=== PATIENT | male | born 1990 | race Caucasian/White ===

== ENCOUNTER → 2017-01-12 | Outpatient (CLI) | payer OTHER, BC ==
[2017-01-12 17:29] LABS: ABSOLUTE EOSINOPHILS # (AUTO) 0.1 10^3/uL (0.0-0.6); ABSOLUTE LYMPHOCYTES (AUTO) 2.2 10^3/uL (0.5-4.7); ABSOLUTE MONOCYTES (AUTO) 0.5 10^3/uL (0.1-1.4); ABSOLUTE NEUT (AUTO) 3.9 10^3/uL (1.7-8.2); BASOPHILS % (AUTO) 0.2 % (0-2); EOSINOPHILS % (AUTO) 0.9 % (0-6); HEMATOCRIT 41.6 % (37.9-51.0); HEMOGLOBIN 14.8 g/dL (13.5-17.0); HGB HCT DIFFERENCE 2.8; LYMPHOCYTES % (AUTO) 32.8 % (13-45); MEAN CORPUSCULAR HEMOGLOBIN 29.6 pg (27.0-33.4); MEAN CORPUSCULAR HGB CONC 35.5 g/dL (32.0-36.0); MEAN CORPUSCULAR VOLUME 83 fl (80-97); MONOCYTES % (AUTO) 8.1 % (3-13); RED BLOOD COUNT 4.99 10^6/uL (4.35-5.55); RED CELL DISTRIBUTION WIDTH 12.7 % (11.5-14.0); WHITE BLOOD COUNT 6.6 10^3/uL (4.0-10.5)
[2017-01-12 17:38] LABS: APPEARANCE,URINE CLEAR; BILIRUBIN,URINE NEGATIVE (NEGATIVE); GLUCOSE, URINE NEGATIVE (NEGATIVE); KETONES,URINE NEGATIVE (NEGATIVE); LEUKOCYTE ESTERASE,URINE NEGATIVE (NEGATIVE); NITRITE,URINE NEGATIVE (NEGATIVE); PROTEIN,URINE 100 mg/dL (NEGATIVE); UROBILINOGEN,URINE NEGATIVE mg/dL (<2.0)
[2017-01-12 17:52] LABS: ALANINE AMINOTRANSFERASE 22 U/L (21-72); ALBUMIN 4.5 g/dL (3.5-5.0); ALKALINE PHOSPHATASE 45 U/L (38-126); ANION GAP 12 (5-19); ASPARTATE AMINO TRANSFERASE 20 U/L (17-59); BILIRUBIN,TOTAL 0.8 mg/dL (0.2-1.3); BLOOD UREA NITROGEN 39 mg/dL (7-20); CARBON DIOXIDE 25 mmol/L (22-30); CHLORIDE 105 mmol/L (98-107); CREATININE RESULT 1.72 mg/dL (0.52-1.25); GLUCOSE 61 mg/dL (75-110); POTASSIUM 4.9 mmol/L (3.6-5.0); SODIUM 141.7 mmol/L (137-145); TOTAL PROTEIN 7.4 g/dL (6.3-8.2)
== END ==
LOC: OD 16:00
PROVIDERS: ATTEND Internal Medicine Nephrology
DX: Z48.22 Encounter for aftercare following kidney transplant (principal); Z79.899 Other long term (current) drug therapy
CPT/HCPCS: 36415; 80053; 80197; 81001; 85025

== ENCOUNTER → 2017-02-25 | Outpatient (CLI) | payer OTHER, BC ==
[2017-02-25 17:26] LABS: APPEARANCE,URINE CLEAR; BILIRUBIN,URINE NEGATIVE (NEGATIVE); GLUCOSE, URINE NEGATIVE (NEGATIVE); KETONES,URINE NEGATIVE (NEGATIVE); LEUKOCYTE ESTERASE,URINE NEGATIVE (NEGATIVE); NITRITE,URINE NEGATIVE (NEGATIVE); PROTEIN,URINE 100 mg/dL (NEGATIVE); URINE SPECIFIC GRAVITY 1.012; UROBILINOGEN,URINE NEGATIVE mg/dL (<2.0)
[2017-02-25 17:54] LABS: ANION GAP 15 (5-19); BLOOD UREA NITROGEN 54 mg/dL (7-20); CALCIUM 9.5 mg/dL (8.4-10.2); CARBON DIOXIDE 20 mmol/L (22-30); CHLORIDE 105 mmol/L (98-107); CREATININE RESULT 1.66 mg/dL (0.52-1.25); GLUCOSE 84 mg/dL (75-110); SODIUM 139.6 mmol/L (137-145)
[2017-02-27 11:38] LABS: CREATININE URINE 81.7 mg/dL (Not Estab.)
== END ==
LOC: OD 16:17
PROVIDERS: ATTEND Internal Medicine Nephrology
DX: N18.3 Chronic kidney disease, stage 3 (moderate) (principal); R80.9 Proteinuria, unspecified; Z48.22 Encounter for aftercare following kidney transplant
CPT/HCPCS: 36415; 80048; 81001; 82570; 84156

== ENCOUNTER → 2017-06-07 | Outpatient (CLI) | payer BC ==
[2017-06-07 17:02] LABS: HEMATOCRIT 39.4 % (37.9-51.0); HEMOGLOBIN 13.6 g/dL (13.5-17.0); HGB HCT DIFFERENCE 1.4; MEAN CORPUSCULAR HEMOGLOBIN 29.2 pg (27.0-33.4); MEAN CORPUSCULAR HGB CONC 34.5 g/dL (32.0-36.0); MEAN CORPUSCULAR VOLUME 85 fl (80-97); RED BLOOD COUNT 4.65 10^6/uL (4.35-5.55); WHITE BLOOD COUNT 5.6 10^3/uL (4.0-10.5)
[2017-06-07 17:15] LABS: APPEARANCE,URINE CLEAR; BILIRUBIN,URINE NEGATIVE (NEGATIVE); GLUCOSE, URINE NEGATIVE (NEGATIVE); KETONES,URINE NEGATIVE (NEGATIVE); LEUKOCYTE ESTERASE,URINE NEGATIVE (NEGATIVE); NITRITE,URINE NEGATIVE (NEGATIVE); PROTEIN,URINE 100 mg/dL (NEGATIVE); URINE SPECIFIC GRAVITY 1.009; UROBILINOGEN,URINE NEGATIVE mg/dL (<2.0)
[2017-06-07 17:33] LABS: ALANINE AMINOTRANSFERASE 20 U/L (21-72); ALBUMIN 4.5 g/dL (3.5-5.0); ALKALINE PHOSPHATASE 48 U/L (38-126); ANION GAP 12 (5-19); ASPARTATE AMINO TRANSFERASE 16 U/L (17-59); BILIRUBIN,DIRECT 0.3 mg/dL (0.0-0.4); BILIRUBIN,TOTAL 0.8 mg/dL (0.2-1.3); BLOOD UREA NITROGEN 29 mg/dL (7-20); CALCIUM 9.4 mg/dL (8.4-10.2); CARBON DIOXIDE 24 mmol/L (22-30); CHLORIDE 104 mmol/L (98-107); CREATININE RESULT 1.84 mg/dL (0.52-1.25); GLUCOSE 119 mg/dL (75-110); POTASSIUM 4.4 mmol/L (3.6-5.0); SODIUM 139.6 mmol/L (137-145); TOTAL PROTEIN 7.2 g/dL (6.3-8.2)
[2017-06-07 17:39] LABS: URINE CREATININE 113.5 mg/dL (24-392); URINE PROTEIN 113.8 mg/dL (<12)
[2017-06-07 18:11] LABS: ADD HIVPANEL? NO; HIV (1 AND 2) ANTIBODY NEGATIVE (NEGATIVE)
[2017-06-09 08:41] LABS: HEPATITIS C VIRUS AB <0.1 s/co ratio (0.0-0.9)
[2017-06-09 13:39] LABS: JO-1 ANTIBODY (ANACOMP) <0.2 AI (0.0-0.9)
== END ==
LOC: OD 15:48
PROVIDERS: ATTEND Internal Medicine Nephrology
DX: N18.3 Chronic kidney disease, stage 3 (moderate) (principal); R80.9 Proteinuria, unspecified; Z48.22 Encounter for aftercare following kidney transplant
CPT/HCPCS: 36415; 80053; 80197; 81001; 82570; 84156; 85027; 86038; 86225; 86235; 86701; 86803; 86804; 87340

== ENCOUNTER → 2017-06-16 | Outpatient (CLI) | payer BC | LOC: OD 07:18 | PROVIDERS: ATTEND Internal Medicine Nephrology | DX: N18.3 Chronic kidney disease, stage 3 (moderate) (principal); R80.9 Proteinuria, unspecified; Z48.22 Encounter for aftercare following kidney transplant; I95.9 Hypotension, unspecified | CPT/HCPCS: 36415; 82533 ==

== ENCOUNTER → 2017-09-06 | Outpatient (CLI) | payer BC ==
[2017-09-06 14:46] LABS: APPEARANCE,URINE CLEAR; BILIRUBIN,URINE NEGATIVE (NEGATIVE); GLUCOSE, URINE NEGATIVE (NEGATIVE); KETONES,URINE NEGATIVE (NEGATIVE); LEUKOCYTE ESTERASE,URINE NEGATIVE (NEGATIVE); NITRITE,URINE NEGATIVE (NEGATIVE); PROTEIN,URINE 100 mg/dL (NEGATIVE); URINE SPECIFIC GRAVITY 1.006; UROBILINOGEN,URINE NEGATIVE mg/dL (<2.0)
[2017-09-06 14:58] LABS: ABSOLUTE EOSINOPHILS # (AUTO) 0.1 10^3/uL (0.0-0.6); ABSOLUTE LYMPHOCYTES (AUTO) 1.8 10^3/uL (0.5-4.7); ABSOLUTE MONOCYTES (AUTO) 0.5 10^3/uL (0.1-1.4); ABSOLUTE NEUT (AUTO) 3.1 10^3/uL (1.7-8.2); BASOPHILS % (AUTO) 0.5 % (0-2); EOSINOPHILS % (AUTO) 1.5 % (0-6); HEMATOCRIT 37.8 % (37.9-51.0); HEMOGLOBIN 13.4 g/dL (13.5-17.0); HGB HCT DIFFERENCE 2.4; LYMPHOCYTES % (AUTO) 32.8 % (13-45); MEAN CORPUSCULAR HGB CONC 35.5 g/dL (32.0-36.0); MEAN CORPUSCULAR VOLUME 84 fl (80-97); MONOCYTES % (AUTO) 8.3 % (3-13); RED BLOOD COUNT 4.48 10^6/uL (4.35-5.55); RED CELL DISTRIBUTION WIDTH 13.2 % (11.5-14.0); SEGMENTED NEUTROPHILS % (AUTO) 56.9 % (42-78); WHITE BLOOD COUNT 5.4 10^3/uL (4.0-10.5)
[2017-09-06 15:15] LABS: ALANINE AMINOTRANSFERASE 18 U/L (21-72); ALBUMIN 4.2 g/dL (3.5-5.0); ALKALINE PHOSPHATASE 41 U/L (38-126); ANION GAP 11 (5-19); ASPARTATE AMINO TRANSFERASE 15 U/L (17-59); BILIRUBIN,DIRECT 0.3 mg/dL (0.0-0.4); BILIRUBIN,TOTAL 0.7 mg/dL (0.2-1.3); BLOOD UREA NITROGEN 32 mg/dL (7-20); CALCIUM 8.9 mg/dL (8.4-10.2); CARBON DIOXIDE 26 mmol/L (22-30); CHLORIDE 105 mmol/L (98-107); CREATININE RESULT 1.77 mg/dL (0.52-1.25); GLUCOSE 97 mg/dL (75-110); POTASSIUM 4.9 mmol/L (3.6-5.0); SODIUM 141.8 mmol/L (137-145); TOTAL PROTEIN 6.4 g/dL (6.3-8.2)
[2017-09-06 15:16] LABS: URINE PROTEIN 79.2 mg/dL (<12)
== END ==
LOC: OD 14:10
PROVIDERS: ATTEND Internal Medicine Nephrology
DX: N18.3 Chronic kidney disease, stage 3 (moderate) (principal); Z48.22 Encounter for aftercare following kidney transplant; R80.9 Proteinuria, unspecified
CPT/HCPCS: 36415; 80053; 80197; 81001; 82570; 84156; 85025

== ENCOUNTER → 2018-01-10 | Outpatient (CLI) | payer BC ==
[2018-01-10 12:52] LABS: ABSOLUTE EOSINOPHILS # (AUTO) 0.1 10^3/uL (0.0-0.6); ABSOLUTE LYMPHOCYTES (AUTO) 1.8 10^3/uL (0.5-4.7); ABSOLUTE MONOCYTES (AUTO) 0.4 10^3/uL (0.1-1.4); ABSOLUTE NEUT (AUTO) 2.6 10^3/uL (1.7-8.2); BASOPHILS % (AUTO) 0.4 % (0-2); EOSINOPHILS % (AUTO) 1.5 % (0-6); HEMATOCRIT 39.8 % (37.9-51.0); HEMOGLOBIN 13.9 g/dL (13.5-17.0); LYMPHOCYTES % (AUTO) 36.4 % (13-45); MEAN CORPUSCULAR HEMOGLOBIN 29.5 pg (27.0-33.4); MEAN CORPUSCULAR VOLUME 84 fl (80-97); PLATELET COUNT 150 10^3/uL (150-450); RED BLOOD COUNT 4.72 10^6/uL (4.35-5.55); RED CELL DISTRIBUTION WIDTH 12.8 % (11.5-14.0); SEGMENTED NEUTROPHILS % (AUTO) 52.7 % (42-78); TOTAL CELLS COUNTED % (AUTO) 100 %
[2018-01-10 12:55] LABS: APPEARANCE,URINE CLEAR; BILIRUBIN,URINE NEGATIVE (NEGATIVE); COLOR,URINE YELLOW; GLUCOSE, URINE NEGATIVE (NEGATIVE); KETONES,URINE NEGATIVE (NEGATIVE); LEUKOCYTE ESTERASE,URINE NEGATIVE (NEGATIVE); NITRITE,URINE NEGATIVE (NEGATIVE); PROTEIN,URINE 100 mg/dL (NEGATIVE); URINE SPECIFIC GRAVITY 1.013; UROBILINOGEN,URINE NEGATIVE mg/dL (<2.0)
[2018-01-10 13:13] LABS: ALANINE AMINOTRANSFERASE 20 U/L (21-72); ALBUMIN 4.2 g/dL (3.5-5.0); ALKALINE PHOSPHATASE 44 U/L (38-126); ANION GAP 9 (5-19); ASPARTATE AMINO TRANSFERASE 18 U/L (17-59); BILIRUBIN,DIRECT 0.4 mg/dL (0.0-0.4); BILIRUBIN,TOTAL 0.7 mg/dL (0.2-1.3); BLOOD UREA NITROGEN 45 mg/dL (7-20); CALCIUM 9.9 mg/dL (8.4-10.2); CARBON DIOXIDE 26 mmol/L (22-30); CHLORIDE 106 mmol/L (98-107); GLUCOSE 83 mg/dL (75-110); POTASSIUM 4.9 mmol/L (3.6-5.0); SODIUM 141.1 mmol/L (137-145); TOTAL PROTEIN 6.7 g/dL (6.3-8.2)
[2018-01-10 13:16] LABS: URINE CREATININE 107.2 mg/dL (24-392)
[2018-01-10 13:26] LABS: UR PRO/CREAT RATIO RESULT 2.7 mg/mg (0.0-0.2); URINE PROTEIN 291.4 mg/dL (<12)
== END ==
LOC: OD 11:24
PROVIDERS: ATTEND Internal Medicine Nephrology
DX: Z48.22 Encounter for aftercare following kidney transplant (principal); N18.3 Chronic kidney disease, stage 3 (moderate); R80.9 Proteinuria, unspecified
CPT/HCPCS: 36415; 80053; 80197; 81001; 82570; 84156; 85025

== ENCOUNTER → 2018-02-04 | Outpatient (CLI) | payer BC ==
[2018-02-04 11:45] LABS: ABSOLUTE EOSINOPHILS # (AUTO) 0.1 10^3/uL (0.0-0.6); ABSOLUTE LYMPHOCYTES (AUTO) 1.6 10^3/uL (0.5-4.7); ABSOLUTE MONOCYTES (AUTO) 0.4 10^3/uL (0.1-1.4); ABSOLUTE NEUT (AUTO) 2.8 10^3/uL (1.7-8.2); BASOPHILS % (AUTO) 0.5 % (0-2); EOSINOPHILS % (AUTO) 1.9 % (0-6); HEMATOCRIT 41.1 % (37.9-51.0); HEMOGLOBIN 14.3 g/dL (13.5-17.0); LYMPHOCYTES % (AUTO) 32.5 % (13-45); MEAN CORPUSCULAR HEMOGLOBIN 29.3 pg (27.0-33.4); MEAN CORPUSCULAR HGB CONC 34.8 g/dL (32.0-36.0); MEAN CORPUSCULAR VOLUME 84 fl (80-97); MONOCYTES % (AUTO) 8.7 % (3-13); PLATELET COUNT 158 10^3/uL (150-450); RED BLOOD COUNT 4.88 10^6/uL (4.35-5.55); RED CELL DISTRIBUTION WIDTH 13.1 % (11.5-14.0); SEGMENTED NEUTROPHILS % (AUTO) 56.4 % (42-78); TOTAL CELLS COUNTED % (AUTO) 100 %
[2018-02-04 11:50] LABS: APPEARANCE,URINE CLEAR; BILIRUBIN,URINE NEGATIVE (NEGATIVE); COLOR,URINE STRAW; GLUCOSE, URINE NEGATIVE (NEGATIVE); KETONES,URINE NEGATIVE (NEGATIVE); LEUKOCYTE ESTERASE,URINE NEGATIVE (NEGATIVE); NITRITE,URINE NEGATIVE (NEGATIVE); PROTEIN,URINE 100 mg/dL (NEGATIVE); URINE SPECIFIC GRAVITY 1.006; UROBILINOGEN,URINE NEGATIVE mg/dL (<2.0)
[2018-02-04 12:08] LABS: UR PRO/CREAT RATIO RESULT 2.9 mg/mg (0.0-0.2); URINE PROTEIN 130.4 mg/dL (<12)
[2018-02-04 12:14] LABS: ALANINE AMINOTRANSFERASE 25 U/L (21-72); ALBUMIN 4.6 g/dL (3.5-5.0); ALKALINE PHOSPHATASE 44 U/L (38-126); ANION GAP 12 (5-19); ASPARTATE AMINO TRANSFERASE 21 U/L (17-59); BILIRUBIN,DIRECT 0.2 mg/dL (0.0-0.4); BILIRUBIN,TOTAL 0.7 mg/dL (0.2-1.3); BLOOD UREA NITROGEN 46 mg/dL (7-20); CALCIUM 10.2 mg/dL (8.4-10.2); CARBON DIOXIDE 25 mmol/L (22-30); CHLORIDE 102 mmol/L (98-107); GLUCOSE 85 mg/dL (75-110); POTASSIUM 5.8 mmol/L (3.6-5.0); SODIUM 138.9 mmol/L (137-145); TOTAL PROTEIN 6.7 g/dL (6.3-8.2)
[2018-02-05 09:16] LABS: CYTOMEGALOVIRUS IGG AB >10.00 U/mL (0.00-0.59); CYTOMEGALOVIRUS IGM AB <30.0 AU/mL (0.0-29.9)
== END ==
LOC: OD 10:37
PROVIDERS: ATTEND Internal Medicine Nephrology
DX: N18.3 Chronic kidney disease, stage 3 (moderate) (principal); Z94.0 Kidney transplant status; R80.9 Proteinuria, unspecified
CPT/HCPCS: 36415; 80053; 81001; 82570; 84156; 85025; 86644

== ENCOUNTER → 2018-03-07 | Outpatient (CLI) | payer BC ==
[2018-03-07 15:35] LABS: ANION GAP 11 (5-19); BLOOD UREA NITROGEN 42 mg/dL (7-20); CALCIUM 9.6 mg/dL (8.4-10.2); CARBON DIOXIDE 22 mmol/L (22-30); CHLORIDE 105 mmol/L (98-107); GLUCOSE 81 mg/dL (75-110); POTASSIUM 5.1 mmol/L (3.6-5.0); SODIUM 138.4 mmol/L (137-145)
[2018-03-07 16:42] LABS: APPEARANCE,URINE CLEAR; BILIRUBIN,URINE NEGATIVE (NEGATIVE); COLOR,URINE STRAW; GLUCOSE, URINE NEGATIVE (NEGATIVE); KETONES,URINE NEGATIVE (NEGATIVE); LEUKOCYTE ESTERASE,URINE NEGATIVE (NEGATIVE); NITRITE,URINE NEGATIVE (NEGATIVE); PROTEIN,URINE 100 mg/dL (NEGATIVE); URINE SPECIFIC GRAVITY 1.008; UROBILINOGEN,URINE NEGATIVE mg/dL (<2.0)
[2018-03-07 16:56] LABS: UR PRO/CREAT RATIO RESULT 1.4 mg/mg (0.0-0.2); URINE CREATININE 56.9 mg/dL (24-392); URINE PROTEIN 80.1 mg/dL (<12)
== END ==
LOC: OD 14:44
PROVIDERS: ATTEND Internal Medicine Nephrology
DX: N18.3 Chronic kidney disease, stage 3 (moderate) (principal); R80.9 Proteinuria, unspecified; E87.5 Hyperkalemia
CPT/HCPCS: 36415; 80048; 81001; 82570; 84156

== ENCOUNTER → 2018-06-06 | Outpatient (CLI) | payer BC ==
[2018-06-06 14:31] LABS: ABSOLUTE EOSINOPHILS # (AUTO) 0.1 10^3/uL (0.0-0.6); ABSOLUTE LYMPHOCYTES (AUTO) 1.7 10^3/uL (0.5-4.7); ABSOLUTE MONOCYTES (AUTO) 0.4 10^3/uL (0.1-1.4); ABSOLUTE NEUT (AUTO) 3.1 10^3/uL (1.7-8.2); BASOPHILS % (AUTO) 0.3 % (0-2); EOSINOPHILS % (AUTO) 1.4 % (0-6); HEMATOCRIT 33.2 % (37.9-51.0); HEMOGLOBIN 11.8 g/dL (13.5-17.0); LYMPHOCYTES % (AUTO) 32.9 % (13-45); MEAN CORPUSCULAR HEMOGLOBIN 29.4 pg (27.0-33.4); MEAN CORPUSCULAR HGB CONC 35.6 g/dL (32.0-36.0); MEAN CORPUSCULAR VOLUME 83 fl (80-97); MONOCYTES % (AUTO) 7.3 % (3-13); PLATELET COUNT 187 10^3/uL (150-450); RED BLOOD COUNT 4.03 10^6/uL (4.35-5.55); SEGMENTED NEUTROPHILS % (AUTO) 58.1 % (42-78); TOTAL CELLS COUNTED % (AUTO) 100 %; WHITE BLOOD COUNT 5.3 10^3/uL (4.0-10.5)
[2018-06-06 14:36] LABS: APPEARANCE,URINE CLEAR; BILIRUBIN,URINE NEGATIVE (NEGATIVE); COLOR,URINE STRAW; GLUCOSE, URINE NEGATIVE (NEGATIVE); KETONES,URINE NEGATIVE (NEGATIVE); LEUKOCYTE ESTERASE,URINE NEGATIVE (NEGATIVE); NITRITE,URINE NEGATIVE (NEGATIVE); PROTEIN,URINE 100 mg/dL (NEGATIVE); URINE SPECIFIC GRAVITY 1.006; UROBILINOGEN,URINE NEGATIVE mg/dL (<2.0)
[2018-06-06 14:49] LABS: ALANINE AMINOTRANSFERASE 22 U/L (21-72); ALBUMIN 4.1 g/dL (3.5-5.0); ALKALINE PHOSPHATASE 38 U/L (38-126); ANION GAP 12 (5-19); ASPARTATE AMINO TRANSFERASE 18 U/L (17-59); BILIRUBIN,DIRECT 0.3 mg/dL (0.0-0.4); BILIRUBIN,TOTAL 0.4 mg/dL (0.2-1.3); BLOOD UREA NITROGEN 47 mg/dL (7-20); CALCIUM 8.8 mg/dL (8.4-10.2); CARBON DIOXIDE 21 mmol/L (22-30); CHLORIDE 106 mmol/L (98-107); GLUCOSE 78 mg/dL (75-110); POTASSIUM 5.7 mmol/L (3.6-5.0); SODIUM 138.5 mmol/L (137-145); TOTAL PROTEIN 6.6 g/dL (6.3-8.2)
[2018-06-06 14:50] LABS: UR PRO/CREAT RATIO RESULT 2.4 mg/mg (0.0-0.2); URINE CREATININE 55.3 mg/dL (24-392); URINE PROTEIN 133.2 mg/dL (<12)
== END ==
LOC: OD 12:46
PROVIDERS: ATTEND Internal Medicine Nephrology
DX: N18.3 Chronic kidney disease, stage 3 (moderate) (principal); R80.9 Proteinuria, unspecified; Z94.0 Kidney transplant status
CPT/HCPCS: 36415; 80053; 80197; 81001; 82570; 84156; 85025

== ENCOUNTER → 2018-06-08 | Outpatient (CLI) | payer BC | LOC: OD 11:42 | PROVIDERS: ATTEND Internal Medicine Nephrology | DX: E87.5 Hyperkalemia (principal) | CPT/HCPCS: 36415; 84132 ==

== ENCOUNTER → 2018-06-13 | Outpatient (CLI) | payer BC | LOC: OD 12:29 | PROVIDERS: ATTEND Internal Medicine Nephrology | DX: E87.5 Hyperkalemia (principal); Z48.22 Encounter for aftercare following kidney transplant | CPT/HCPCS: 36415; 84132 ==

== ENCOUNTER → 2018-06-16 | Outpatient (CLI) | payer BC | LOC: OD 11:57 | PROVIDERS: ATTEND Internal Medicine Nephrology | DX: E87.5 Hyperkalemia (principal) | CPT/HCPCS: 36415; 84132 ==

== ENCOUNTER → 2018-07-04 | Outpatient (CLI) | payer BC ==
[2018-07-04 13:12] LABS: ABSOLUTE EOSINOPHILS # (AUTO) 0.1 10^3/uL (0.0-0.6); ABSOLUTE LYMPHOCYTES (AUTO) 1.6 10^3/uL (0.5-4.7); ABSOLUTE MONOCYTES (AUTO) 0.5 10^3/uL (0.1-1.4); ABSOLUTE NEUT (AUTO) 3.3 10^3/uL (1.7-8.2); BASOPHILS % (AUTO) 0.4 % (0-2); HEMATOCRIT 32.2 % (37.9-51.0); HEMOGLOBIN 11.4 g/dL (13.5-17.0); MEAN CORPUSCULAR HEMOGLOBIN 29.8 pg (27.0-33.4); MEAN CORPUSCULAR HGB CONC 35.3 g/dL (32.0-36.0); MEAN CORPUSCULAR VOLUME 84 fl (80-97); MONOCYTES % (AUTO) 8.6 % (3-13); PLATELET COUNT 156 10^3/uL (150-450); RED BLOOD COUNT 3.81 10^6/uL (4.35-5.55); RED CELL DISTRIBUTION WIDTH 13.5 % (11.5-14.0); TOTAL CELLS COUNTED % (AUTO) 100 %; WHITE BLOOD COUNT 5.4 10^3/uL (4.0-10.5)
[2018-07-04 13:14] LABS: APPEARANCE,URINE CLEAR; BILIRUBIN,URINE NEGATIVE (NEGATIVE); COLOR,URINE STRAW; GLUCOSE, URINE NEGATIVE (NEGATIVE); KETONES,URINE NEGATIVE (NEGATIVE); LEUKOCYTE ESTERASE,URINE NEGATIVE (NEGATIVE); NITRITE,URINE NEGATIVE (NEGATIVE); PROTEIN,URINE 100 mg/dL (NEGATIVE); URINE SPECIFIC GRAVITY 1.005; UROBILINOGEN,URINE NEGATIVE mg/dL (<2.0)
[2018-07-04 13:24] LABS: ALANINE AMINOTRANSFERASE 24 U/L (21-72); ALBUMIN 3.9 g/dL (3.5-5.0); ALKALINE PHOSPHATASE 38 U/L (38-126); ANION GAP 11 (5-19); ASPARTATE AMINO TRANSFERASE 17 U/L (17-59); BILIRUBIN,DIRECT 0.2 mg/dL (0.0-0.4); BILIRUBIN,TOTAL 0.5 mg/dL (0.2-1.3); BLOOD UREA NITROGEN 41 mg/dL (7-20); CALCIUM 9.2 mg/dL (8.4-10.2); CARBON DIOXIDE 22 mmol/L (22-30); CHLORIDE 104 mmol/L (98-107); GLUCOSE 88 mg/dL (75-110); SODIUM 136.8 mmol/L (137-145); TOTAL PROTEIN 6.3 g/dL (6.3-8.2)
[2018-07-04 13:39] LABS: URINE CREATININE 46.8 mg/dL (24-392)
== END ==
LOC: OD 12:26
PROVIDERS: ATTEND Internal Medicine Nephrology
DX: N18.3 Chronic kidney disease, stage 3 (moderate) (principal); E87.5 Hyperkalemia; Z48.22 Encounter for aftercare following kidney transplant; R80.9 Proteinuria, unspecified
CPT/HCPCS: 36415; 80053; 81001; 82570; 84156; 85025

== ENCOUNTER → 2018-10-06 | Outpatient (CLI) | payer BC ==
[2018-10-06 09:49] LABS: ABSOLUTE EOSINOPHILS # (AUTO) 0.1 10^3/uL (0.0-0.6); ABSOLUTE LYMPHOCYTES (AUTO) 1.4 10^3/uL (0.5-4.7); ABSOLUTE MONOCYTES (AUTO) 0.3 10^3/uL (0.1-1.4); ABSOLUTE NEUT (AUTO) 3.2 10^3/uL (1.7-8.2); BASOPHILS % (AUTO) 0.4 % (0-2); HEMATOCRIT 31.8 % (37.9-51.0); HEMOGLOBIN 11.3 g/dL (13.5-17.0); LYMPHOCYTES % (AUTO) 27.1 % (13-45); MEAN CORPUSCULAR HEMOGLOBIN 29.9 pg (27.0-33.4); MEAN CORPUSCULAR HGB CONC 35.5 g/dL (32.0-36.0); MEAN CORPUSCULAR VOLUME 84 fl (80-97); MONOCYTES % (AUTO) 6.7 % (3-13); PLATELET COUNT 177 10^3/uL (150-450); RED BLOOD COUNT 3.77 10^6/uL (4.35-5.55); SEGMENTED NEUTROPHILS % (AUTO) 63.8 % (42-78); TOTAL CELLS COUNTED % (AUTO) 100 %
[2018-10-06 09:57] LABS: APPEARANCE,URINE SLIGHTLY-CLOUDY; BILIRUBIN,URINE NEGATIVE (NEGATIVE); COLOR,URINE YELLOW; GLUCOSE, URINE NEGATIVE (NEGATIVE); KETONES,URINE NEGATIVE (NEGATIVE); LEUKOCYTE ESTERASE,URINE NEGATIVE (NEGATIVE); NITRITE,URINE NEGATIVE (NEGATIVE); PROTEIN,URINE >=500 mg/dL (NEGATIVE); URINE SPECIFIC GRAVITY 1.011; UROBILINOGEN,URINE NEGATIVE mg/dL (<2.0)
[2018-10-06 10:09] LABS: ALANINE AMINOTRANSFERASE 18 U/L (21-72); ALBUMIN 3.3 g/dL (3.5-5.0); ALKALINE PHOSPHATASE 41 U/L (38-126); ANION GAP 11 (5-19); ASPARTATE AMINO TRANSFERASE 16 U/L (17-59); BILIRUBIN,DIRECT 0.3 mg/dL (0.0-0.4); BILIRUBIN,TOTAL 0.3 mg/dL (0.2-1.3); BLOOD UREA NITROGEN 54 mg/dL (7-20); CALCIUM 8.9 mg/dL (8.4-10.2); CARBON DIOXIDE 22 mmol/L (22-30); CHLORIDE 110 mmol/L (98-107); GLUCOSE 94 mg/dL (75-110); POTASSIUM 5.1 mmol/L (3.6-5.0); SODIUM 142.8 mmol/L (137-145); TOTAL PROTEIN 5.7 g/dL (6.3-8.2)
[2018-10-06 10:13] LABS: URINE CREATININE 73.5 mg/dL (24-392)
[2018-10-06 10:38] LABS: UR PRO/CREAT RATIO RESULT 7.2 mg/mg (0.0-0.2); URINE PROTEIN 526.7 mg/dL (<12)
== END ==
LOC: OD 08:59
PROVIDERS: ATTEND Internal Medicine Nephrology
DX: I12.9 Hypertensive chronic kidney disease with stage 1 through stage 4 chronic kidney disease, or unspecified chronic kidney disease (principal); N18.3 Chronic kidney disease, stage 3 (moderate); R80.9 Proteinuria, unspecified; Z94.0 Kidney transplant status
CPT/HCPCS: 36415; 80053; 80197; 81001; 82570; 84156; 85025

== ENCOUNTER → 2018-10-18 | Outpatient (CLI) | payer BC ==
--- NOTE | 2018-10-18 08:49 | RADIOLOGY REPORT (SQ) ---
EXAM DESCRIPTION: [facility] DUPLEX ART/CHRISTI FLOW COMPLETED DATE/TIME: 10/18/2018 7:48 am REASON FOR STUDY: CKD III (N18.3), KIDNEY TRANSPLANT STATUS (Z94.0) Z94.0 KIDNEY TRANSPLANT STATUS COMPARISON: None. TECHNIQUE: Realtime and static grayscale images acquired. Selected color Doppler, velocities and spe ctral images recorded of the right lower quadrant transplant kidney. Limited bladder ultrasound also performed. LIMITATIONS: None. FINDINGS: Right lower quadrant transplant kidney: RENAL ARTERY VELOCITIES: At the hilum 118 cm/sec. Segmental artery velocity 52 cm/sec. RENAL VEIN: Color doppler flow present, patent. VELOCITY RATIO: 0.78. Normal waveforms. Resistive indices in the arcuate and interlobar artery are 0 .54 to 0.62. KIDNEY: Normal size, 12 cm in length. No significant pathology. BLADDER: Normal. OTHER: No other significant finding. IMPRESSION: NO DOPPLER EVIDENCE OF HEMODYNAMICALLY SIGNIFICANT RENAL ARTERY STENOSIS. NO ULTRASOUND EVIDENCE OF RENAL VEIN THROMBOSIS, OR HYDRONEPHROSIS. COMMENT: NORMAL RENAL ARTERY/AORTA VELOCITY RATIO IS LESS THAN OR EQUAL TO 3.5. TECHNICAL DOCUMENTATION: JOB ID: [id number] [email or web address] All Rights Reserved Reading location - IP/workstation name: [email or web address]
== END ==
LOC: RAD 06:37
PROVIDERS: ATTEND Internal Medicine Nephrology
DX: N17.9 Acute kidney failure, unspecified (principal); N18.3 Chronic kidney disease, stage 3 (moderate); Z94.0 Kidney transplant status
CPT/HCPCS: 93976

== ENCOUNTER → 2018-11-01 | Outpatient (CLI) | payer BC ==
[2018-11-01 10:25] LABS: ANION GAP 10 (5-19); BLOOD UREA NITROGEN 89 mg/dL (7-20); CALCIUM 8.7 mg/dL (8.4-10.2); CARBON DIOXIDE 23 mmol/L (22-30); CHLORIDE 109 mmol/L (98-107); GLUCOSE 101 mg/dL (75-110); POTASSIUM 4.2 mmol/L (3.6-5.0); SODIUM 142.3 mmol/L (137-145)
== END ==
LOC: OD 09:07
PROVIDERS: ATTEND Internal Medicine Nephrology
DX: R80.9 Proteinuria, unspecified (principal); Z94.0 Kidney transplant status; N17.9 Acute kidney failure, unspecified
CPT/HCPCS: 36415; 80048; 80197

== ENCOUNTER → 2018-11-09 | Outpatient (CLI) | payer BC ==
[2018-11-09 08:34] LABS: ABSOLUTE EOSINOPHILS # (AUTO) 0.1 10^3/uL (0.0-0.6); ABSOLUTE MONOCYTES (AUTO) 0.5 10^3/uL (0.1-1.4); ABSOLUTE NEUT (AUTO) 4.8 10^3/uL (1.7-8.2); BASOPHILS % (AUTO) 0.3 % (0-2); HEMATOCRIT 26.6 % (37.9-51.0); HEMOGLOBIN 9.2 g/dL (13.5-17.0); LYMPHOCYTES % (AUTO) 26.5 % (13-45); MEAN CORPUSCULAR HEMOGLOBIN 29.2 pg (27.0-33.4); MEAN CORPUSCULAR HGB CONC 34.7 g/dL (32.0-36.0); MEAN CORPUSCULAR VOLUME 84 fl (80-97); MONOCYTES % (AUTO) 7.3 % (3-13); PLATELET COUNT 142 10^3/uL (150-450); RED BLOOD COUNT 3.15 10^6/uL (4.35-5.55); RED CELL DISTRIBUTION WIDTH 13.5 % (11.5-14.0); SEGMENTED NEUTROPHILS % (AUTO) 64.9 % (42-78); TOTAL CELLS COUNTED % (AUTO) 100 %; WHITE BLOOD COUNT 7.4 10^3/uL (4.0-10.5)
[2018-11-09 08:45] LABS: ANION GAP 6 (5-19); BLOOD UREA NITROGEN 77 mg/dL (7-20); CALCIUM 8.8 mg/dL (8.4-10.2); CARBON DIOXIDE 24 mmol/L (22-30); CHLORIDE 111 mmol/L (98-107); GLUCOSE 91 mg/dL (75-110); PHOSPHORUS 5.3 mg/dL (2.5-4.5); POTASSIUM 4.4 mmol/L (3.6-5.0); SODIUM 141.4 mmol/L (137-145)
== END ==
LOC: OD 07:06
PROVIDERS: ATTEND Internal Medicine Nephrology
DX: D89.9 Disorder involving the immune mechanism, unspecified (principal); Z94.0 Kidney transplant status; Z79.899 Other long term (current) drug therapy; E55.9 Vitamin D deficiency, unspecified; Z11.4 Encounter for screening for human immunodeficiency virus [HIV]; Z78.9 Other specified health status; N39.0 Urinary tract infection, site not specified; D63.1 Anemia in chronic kidney disease; E83.30 Disorder of phosphorus metabolism, unspecified; Z09 Encounter for follow-up examination after completed treatment for conditions other than malignant neoplasm; T86.10 Unspecified complication of kidney transplant; Z94.83 Pancreas transplant status; B25.9 Cytomegaloviral disease, unspecified
CPT/HCPCS: 36415; 80048; 80197; 83735; 84100; 85025

== ENCOUNTER 2018-11-11 10:20 | Inpatient (IN) | payer BC ==
--- NOTE | 2018-11-11 10:44 | ER Document Report ---
ED Medical Screen (RME) - General Chief Complaint: Abnormal Lab Results Stated Complaint: ABNORMAL LABS Time Seen by Provider: 11/11/18 10:38 Notes: 28-year-old renal transplant patient, the transplant kidney is starting to fail. He is been developing dyspnea on exertion recently and considerably increased edema to his lower extremities. 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 I have greeted and performed a rapid initial assessment of this patient. A comprehensive ED assessment and evaluation of the patient, analysis of test results and completion of the medical decision making process will be conducted by additional ED providers. TRAVEL OUTSIDE OF THE [place] IN LAST 30 DAYS: No - Related Data Allergies/Adverse Reactions: latex Allergy (Verified 10/16/16 22:00) NSAIDS (Non-Steroidal Anti-Inflamma Adverse Reaction (Verified 10/16/16 22:00) Past Medical History - Past Medical History Cardiac Medical History: Reports: Hx Hypertension - See history of present illness Pulmonary Medical History: Reports: Hx Bronchitis Past Surgical History: Reports: Hx Kidney (Renal Surgery) - Renal transplant in 2004, see history of present illness Physical Exam - Vital signs Vitals: Temp Pulse Resp BP Pulse Ox 98.4 F 88 16 145/83 H 98 11/11/18 10:33 11/11/18 10:33 11/11/18 10:33 11/11/18 10:33 11/11/18 10:33 Course - Vital Signs Vital signs: Temp Pulse Resp BP Pulse Ox 98.4 F 88 16 145/83 H 98 11/11/18 10:33 11/11/18 10:33 11/11/18 10:33 11/11/18 10:33 11/11/18 10:33 Doctor's Discharge - Discharge Referrals: POLI DUNAWAY MD [Primary Care Provider] - Follow up as needed
[2018-11-11 11:11] LABS: ABSOLUTE LYMPHOCYTES (AUTO) 0.8 10^3/uL (0.5-4.7); ABSOLUTE MONOCYTES (AUTO) 0.2 10^3/uL (0.1-1.4); ABSOLUTE NEUT (AUTO) 5.8 10^3/uL (1.7-8.2); BASOPHILS % (AUTO) 0.3 % (0-2); EOSINOPHILS % (AUTO) 0.3 % (0-6); HEMATOCRIT 26.8 % (37.9-51.0); HEMOGLOBIN 9.2 g/dL (13.5-17.0); LYMPHOCYTES % (AUTO) 12.2 % (13-45); MEAN CORPUSCULAR HEMOGLOBIN 29.1 pg (27.0-33.4); MEAN CORPUSCULAR HGB CONC 34.2 g/dL (32.0-36.0); MEAN CORPUSCULAR VOLUME 85 fl (80-97); MONOCYTES % (AUTO) 3.5 % (3-13); PLATELET COUNT 154 10^3/uL (150-450); RED BLOOD COUNT 3.15 10^6/uL (4.35-5.55); RED CELL DISTRIBUTION WIDTH 13.7 % (11.5-14.0); SEGMENTED NEUTROPHILS % (AUTO) 83.7 % (42-78); TOTAL CELLS COUNTED % (AUTO) 100 %; WHITE BLOOD COUNT 6.9 10^3/uL (4.0-10.5)
--- NOTE | 2018-11-11 11:12 | RADIOLOGY REPORT (SQ) ---
EXAM DESCRIPTION: CHEST 2 VIEWS COMPLETED DATE/TIME: 11/11/2018 11:03 am REASON FOR STUDY: FROST, edema, renal transplant failing COMPARISON: Chest films 10/16/2016, 09/14/2016 EXAM PARAMETERS: NUMBER OF VIEWS: two views TECHNIQUE: Digital Frontal and Lateral radiographic views of the chest acquired. RADIATION DOSE: NA LIMITATIONS: none FINDINGS: LUNGS AND PLEURA: No opacities, masses or pneumothorax. No pleural effusion. MEDIASTINUM AND HILAR STRUCTURES: No masses or contour abnormalities. HEART AND VASCULAR STRUCTURES: Heart normal size. No evidence for failure. BONES: No acute findings. HARDWARE: None in the chest. OTHER: No other significant finding. IMPRESSION: NO ACUTE RADIOGRAPHIC FINDING IN THE CHEST. TECHNICAL DOCUMENTATION: JOB ID: [id number] [email or web address]- All Rights Reserved Reading location - IP/workstation name: [email or web address]
[2018-11-11 11:17] LABS: APPEARANCE,URINE SLIGHTLY-CLOUDY; BILIRUBIN,URINE NEGATIVE (NEGATIVE); COLOR,URINE STRAW; GLUCOSE, URINE NEGATIVE (NEGATIVE); KETONES,URINE NEGATIVE (NEGATIVE); LEUKOCYTE ESTERASE,URINE NEGATIVE (NEGATIVE); NITRITE,URINE NEGATIVE (NEGATIVE); PROTEIN,URINE >=500 mg/dL (NEGATIVE); URINE SPECIFIC GRAVITY 1.009; UROBILINOGEN,URINE NEGATIVE mg/dL (<2.0)
[2018-11-11 11:27] LABS: ALANINE AMINOTRANSFERASE 44 U/L (21-72); ALBUMIN 3.5 g/dL (3.5-5.0); ALKALINE PHOSPHATASE 36 U/L (38-126); ANION GAP 8 (5-19); ASPARTATE AMINO TRANSFERASE 34 U/L (17-59); BILIRUBIN,DIRECT 0.3 mg/dL (0.0-0.4); BILIRUBIN,TOTAL 0.5 mg/dL (0.2-1.3); BLOOD UREA NITROGEN 83 mg/dL (7-20); CALCIUM 8.8 mg/dL (8.4-10.2); CARBON DIOXIDE 22 mmol/L (22-30); CHLORIDE 111 mmol/L (98-107); GLUCOSE 114 mg/dL (75-110); PHOSPHORUS 5.3 mg/dL (2.5-4.5); POTASSIUM 4.9 mmol/L (3.6-5.0); SODIUM 140.5 mmol/L (137-145); TOTAL PROTEIN 5.6 g/dL (6.3-8.2)
[2018-11-11] MEDS ORDERED: FUROSEMIDE INJ/PF 40 MG/4 ML SDV IV ONE (11:34)
--- NOTE | 2018-11-11 11:46 | ER Document Report ---
ED General - General Chief Complaint: Abnormal Lab Results Stated Complaint: ABNORMAL LABS Time Seen by Provider: 11/11/18 10:38 Mode of Arrival: Ambulatory Information source: Patient, Office TRAVEL OUTSIDE OF THE [place] IN LAST 30 DAYS: No - HPI Patient complains to provider of: Weight gain Onset: Other - 28-year-old gentleman who is 14 years status post renal transplant for kidney disease, he notes that he is got developing kidney failure and has been being evaluated for transplant through the [facility]. He is followed by Dr. Elias Faust who saw him today in clinic because he has been gaining weight and holding on the fluid and they attempted to aggressively give him twice daily doses of his Lasix at home without any improvement in his symptoms. He was sent from his clinic this morning for admission and IV diuretics. - Related Data Allergies/Adverse Reactions: latex Allergy (Verified 10/16/16 22:00) NSAIDS (Non-Steroidal Anti-Inflamma Adverse Reaction (Verified 10/16/16 22:00) Past Medical History - General Information source: Patient, Office - Social History Smoking Status: Never Smoker Chew tobacco use (# tins/day): No Frequency of alcohol use: None Drug Abuse: None Family History: Reviewed & Not Pertinent Patient has suicidal ideation: No Patient has homicidal ideation: No - Past Medical History Cardiac Medical History: Reports: Hx Hypertension - See history of present illness Pulmonary Medical History: Reports: Hx Bronchitis Renal/ Medical History: Denies: Hx Peritoneal Dialysis Past Surgical History: Reports: Hx Kidney (Renal Surgery) - Renal transplant in 2004, see history of present illness Review of Systems - Review of Systems -: Yes All other systems reviewed and negative Physical Exam - Vital signs Vitals: Temp Pulse Resp BP Pulse Ox 98.4 F 88 16 145/83 H 98 11/11/18 10:33 11/11/18 10:33 11/11/18 10:33 11/11/18 10:33 11/11/18 10:33 Interpretation: Normal - General General appearance: Appears well, Alert - HEENT Head: Normocephalic, Atraumatic Eyes: Normal Pupils: PERRL - Respiratory Respiratory status: No respiratory distress Chest status: Nontender Breath sounds: Normal Chest palpation: Normal - Cardiovascular Rhythm: Regular Heart sounds: Normal auscultation Murmur: No - Abdominal Inspection: Normal, Healed incision Distension: No distension Bowel sounds: Normal Tenderness: Nontender Organomegaly: No organomegaly - Back Back: Normal, Nontender - Extremities General upper extremity: Normal inspection, Nontender, Normal color, Normal ROM, Normal temperature General lower extremity: Normal inspection, Nontender, Edema - +2 pitting edema in the bilateral lower extremities, Normal color, Normal ROM, Normal temperature, Normal weight bearing. No: Cristiana's sign - Neurological Neuro grossly intact: Yes Cognition: Normal Orientation: AAOx4 Erum Coma Scale Eye Opening: Spontaneous Liberty Coma Scale Verbal: Oriented Erum Coma Scale Motor: Obeys Commands Erum Coma Scale Total: 15 Speech: Normal Motor strength normal: LUE, RUE, LLE, RLE Sensory: Normal - Psychological Associated symptoms: Normal affect, Normal mood - Skin Skin Temperature: Warm Skin Moisture: Dry Skin Color: Normal Course - Re-evaluation Re-evalutation: 11/11/18 12:29 28-year-old male presents from [facility] for evaluation of a fluid overload in the setting of chronic renal failure. He is a transplant patient and previously undergone transplant 14 years prior. Is being evaluated for another transplant. Labs drawn through triage demonstrate the patient does have worsening creatinine and renal function. Patient however is comfortable on room air at this point. Current plan will be for this patient undergo admission to the hospital, have contacted on-call hospitalist Dr. Lalito Monroe who agrees to evaluate and admit this patient. I did speak to Dr. Elias Faust on the phone, we discussed the patient's labs including his creatinine, his BUN, as well as potassium. He noted that he would encourage us to utilize a gentler diuresis something along the lines of 20 mg per 8 hours IV. We will plan for continued monitoring and admission to the hospital. - Vital Signs Vital signs: Temp Pulse Resp BP Pulse Ox 98.4 F 88 15 135/89 H 98 11/11/18 10:33 11/11/18 10:33 11/11/18 14:01 11/11/18 14:00 11/11/18 14:01 - Laboratory Result Diagrams: 11/11/18 10:57 11/11/18 10:57 Laboratory results interpreted by me: 11/11/18 11/11/18 11/11/18 10:57 10:57 10:57 RBC 3.15 L Hgb 9.2 L Hct 26.8 L Seg Neutrophils % 83.7 H Lymphocytes % 12.2 L Chloride 111 H BUN 83 H Creatinine 4.16 H Est GFR ( Amer) 21 L Est GFR (Non-Af Amer) 17 L Glucose 114 H Phosphorus 5.3 H Alkaline Phosphatase 36 L Total Protein 5.6 L Urine Protein >=500 H Urine Blood SMALL H Discharge - Discharge Clinical Impression: Renal failure Qualifiers: Renal failure chronicity: acute on chronic Acute renal failure type: unspecified Chronic kidney disease stage: unspecified stage Qualified Code(s): N17.9 - Acute kidney failure, unspecified Edema Qualifiers: Edema type: unspecified Qualified Code(s): R60.9 - Edema, unspecified Condition: Stable Disposition: ADMITTED INPATIENT Admitting Provider: Hospitalist Unit Admitted: Telemetry
--- NOTE | 2018-11-11 17:33 | PDOC H&P ---
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 Faust's clinic due to progressive pedal edema and mild abdominal distention. Patient says that he underwent bilateral renal transplant and [place] in 2004. He says that he moved here and has been following with Dr. Faust's clinic for the past 3 years. He says he has been having increasing pedal edema for the past 3 months. He says that over the past week, he has developed mild exertional dyspnea and further worsening of his leg swelling. He is on oral Lasix at home. He was advised by Dr. Faust to be admitted for IV diuresis. Patient denies any chest pain, palpitations at rest. No fever or chills. Past Medical History Cardiac Medical History: Reports: Hypertension - See history of present illness Pulmonary Medical History: Reports: Bronchitis Social History Smoking Status: Never Smoker Frequency of Alcohol Use: Rare Hx Recreational Drug Use: No Drugs: None Family History Family History: Reviewed & Not Pertinent Parental Family History Reviewed: Yes - No premature CAD Children Family History Reviewed: No Sibling(s) Family History Reviewed.: No Medication/Allergy Home Medications: Amlodipine Besylate [Norvasc 10 mg Tablet] 10 mg PO DAILY 11/11/18 Carvedilol [Coreg] 6.25 mg PO Q12 11/11/18 Folic Acid/Vitamin B Comp W-C [Zee-Jaydon Tablet] 0.8 mg PO DAILY 11/11/18 Furosemide [Lasix] 40 mg PO DAILY 11/11/18 Mycophenolate Mofetil 750 mg PO BID 11/11/18 Prednisone 10 mg PO DAILY 11/11/18 Sevelamer HCl [Renagel 800 mg Tablet] 800 mg PO TID 11/11/18 Sulfamethoxazole/Trimethoprim [Sulfamethoxazole-Tmp Ss Tablet] 1 each PO MOWEFR@1000 11/11/18 Tacrolimus [Prograf] 2 mg PO BID 11/11/18 Allergies/Adverse Reactions: latex Allergy (Verified 10/16/16 22:00) NSAIDS (Non-Steroidal Anti-Inflamma Adverse Reaction (Verified 10/16/16 22:00) Review of Systems All systems: reviewed and no additional remarkable complaints except as stated - as mentioned in HPI Physical Exam Vital Signs: Temp Pulse Resp BP Pulse Ox 98.4 F 88 25 H 127/77 H 98 11/11/18 10:33 11/11/18 10:33 11/11/18 13:01 11/11/18 13:01 11/11/18 13:01 Intake & Output 11/10/18 11/11/18 11/12/18 06:59 06:59 06:59 Weight 152 lb 12.485 oz General appearance: PRESENT: no acute distress, well-developed, well-nourished Head exam: PRESENT: atraumatic, normocephalic Eye exam: PRESENT: conjunctiva pink, EOMI, PERRLA. ABSENT: scleral icterus Ear exam: PRESENT: normal external ear exam Neck exam: ABSENT: carotid bruit, JVD, lymphadenopathy, thyromegaly Respiratory exam: PRESENT: clear to auscultation shira. ABSENT: rales, rhonchi, wheezes Cardiovascular exam: PRESENT: RRR. ABSENT: diastolic murmur, rubs, systolic murmur Pulses: PRESENT: normal dorsalis pedis pul GI/Abdominal exam: PRESENT: ascites, normal bowel sounds, soft. ABSENT: guarding, mass, organolmegaly, rebound, tenderness Rectal exam: PRESENT: deferred Extremities exam: PRESENT: +2 edema Neurological exam: PRESENT: alert, awake, oriented to person, oriented to place, oriented to time, oriented to situation, CN II-XII grossly intact. ABSENT: motor sensory deficit Results Laboratory Results: 11/11/18 10:57 11/11/18 10:57 11/11/18 11/11/18 11/11/18 10:57 10:57 10:57 WBC 6.9 RBC 3.15 L Hgb 9.2 L Hct 26.8 L MCV 85 MCH 29.1 MCHC 34.2 RDW 13.7 Plt Count 154 Seg Neutrophils % 83.7 H Lymphocytes % 12.2 L Monocytes % 3.5 Eosinophils % 0.3 Basophils % 0.3 Absolute Neutrophils 5.8 Absolute Lymphocytes 0.8 Absolute Monocytes 0.2 Absolute Eosinophils 0.0 Absolute Basophils 0.0 Sodium 140.5 Potassium 4.9 Chloride 111 H Carbon Dioxide 22 Anion Gap 8 BUN 83 H Creatinine 4.16 H Est GFR ( Amer) 21 L Est GFR (Non-Af Amer) 17 L Glucose 114 H Calcium 8.8 Phosphorus 5.3 H Magnesium 1.9 Total Bilirubin 0.5 AST 34 ALT 44 Alkaline Phosphatase 36 L Total Protein 5.6 L Albumin 3.5 Urine Color STRAW Urine Appearance SLIGHTLY-CLOUDY Urine pH 5.0 Ur Specific [place] 1.009 Urine Protein >=500 H Urine Glucose (UA) NEGATIVE Urine Ketones NEGATIVE Urine Blood SMALL H Urine Nitrite NEGATIVE Ur Leukocyte Esterase NEGATIVE Urine WBC (Auto) 1 Urine RBC (Auto) 1 Impressions: Chest X-Ray 11/11/18 10:42 IMPRESSION: NO ACUTE RADIOGRAPHIC FINDING IN THE CHEST. Assessment & Plan - Diagnosis (1) Fluid overload Is this a current diagnosis for this admission?: Yes Plan: Discussed with Dr. Faust. Patient has not responded to oral Lasix and is showing signs of fluid overload. We will start patient on IV Lasix 20 mg IV every 8. (2) Acute on chronic renal failure Is this a current diagnosis for this admission?: Yes Plan: Patient's creatinine 2 months ago was reportedly at 2.5. His creatinine continues to trend the past several weeks. Creatinine today is 4.13. No hyperkalemia and acidosis or elevated. Patient is still making adequate urine. No indication or plan for dialysis at this time. (3) Chronic rejection of kidney transplant Is this a current diagnosis for this admission?: Yes Plan: Resume tacrolimus, mycophenolate and prednisone. - Time Time Spent: 30 to 50 Minutes
[2018-11-11] MEDS ORDERED: MYCOPHENOLATE MOFETIL 250 MG CAPSULE PO SCH (18:00)
[2018-11-11] MEDS: TACROLIMUS ANHYDROUS 1 MG CAPSULE PO SCH (20:42)
[2018-11-11] MEDS: HEPARIN SOD (PORCINE) 5,000 UNIT/ML 1 ML SYRINGE SUBCUT SCH (21:13)
[2018-11-11] MEDS: CARVEDILOL 12.5 MG TABLET PO SCH (21:17)
[2018-11-11] MEDS: FUROSEMIDE INJ/PF 20 MG/2 ML SDV IV SCH (21:20)
[2018-11-11] MEDS ORDERED: TACROLIMUS ANHYDROUS 1 MG CAPSULE PO SCH (22:00)
[2018-11-11 22:04] LABS: URINE CREATININE 50.3 mg/dL (24-392)
[2018-11-11 22:12] LABS: UR PRO/CREAT RATIO RESULT 5.8 mg/mg (0.0-0.2); URINE PROTEIN 293.4 mg/dL (<12)
[2018-11-12 05:21] LABS: ABSOLUTE LYMPHOCYTES (AUTO) 1.4 10^3/uL (0.5-4.7); ABSOLUTE MONOCYTES (AUTO) 0.3 10^3/uL (0.1-1.4); ABSOLUTE NEUT (AUTO) 2.8 10^3/uL (1.7-8.2); BASOPHILS % (AUTO) 0.4 % (0-2); EOSINOPHILS % (AUTO) 0.9 % (0-6); HEMATOCRIT 20.9 % (37.9-51.0); LYMPHOCYTES % (AUTO) 30.6 % (13-45); MEAN CORPUSCULAR HEMOGLOBIN 29.4 pg (27.0-33.4); MEAN CORPUSCULAR HGB CONC 35.2 g/dL (32.0-36.0); MEAN CORPUSCULAR VOLUME 84 fl (80-97); MONOCYTES % (AUTO) 7.1 % (3-13); PLATELET COUNT 123 10^3/uL (150-450); RED BLOOD COUNT 2.51 10^6/uL (4.35-5.55); RED CELL DISTRIBUTION WIDTH 13.5 % (11.5-14.0); TOTAL CELLS COUNTED % (AUTO) 100 %; WHITE BLOOD COUNT 4.6 10^3/uL (4.0-10.5)
[2018-11-12 05:42] LABS: HEMOGLOBIN 7.4 g/dL (13.5-17.0)
[2018-11-12 05:47] LABS: ANION GAP 7 (5-19); BLOOD UREA NITROGEN 77 mg/dL (7-20); CALCIUM 8.5 mg/dL (8.4-10.2); CARBON DIOXIDE 21 mmol/L (22-30); CHLORIDE 111 mmol/L (98-107); GLUCOSE 93 mg/dL (75-110); PHOSPHORUS 5.7 mg/dL (2.5-4.5); POTASSIUM 4.7 mmol/L (3.6-5.0); SODIUM 138.8 mmol/L (137-145)
[2018-11-12] MEDS: FUROSEMIDE INJ/PF 20 MG/2 ML SDV IV SCH ×3 (06:54→21:14)
[2018-11-12] MEDS: MYCOPHENOLATE MOFETIL 250 MG CAPSULE PO SCH ×2 (06:54→18:55)
[2018-11-12] MEDS: TACROLIMUS ANHYDROUS 1 MG CAPSULE PO SCH ×2 (06:58→18:55)
[2018-11-12] MEDS ORDERED: SEVELAMER HCL 800 MG TABLET PO SCH (10:00)
[2018-11-12] MEDS: CARVEDILOL 12.5 MG TABLET PO SCH ×2 (10:02→21:14)
[2018-11-12 10:13] LABS: ABSOLUTE RETICS # 0.087 10^6/uL (0.028-0.122)
[2018-11-12 10:18] LABS: IRON(TIBC) 89.4 ug/dL (49-181)
[2018-11-12 11:27] LABS: FOLATE 8.69 ng/mL (>2.76)
[2018-11-12] MEDS: HEPARIN SOD (PORCINE) 5,000 UNIT/ML 1 ML SYRINGE SUBCUT SCH ×2 (11:28→21:11)
[2018-11-12] MEDS: PREDNISONE 10 MG TABLET PO SCH (12:10)
[2018-11-12] MEDS ORDERED: EPOETIN ALFA INJ 20000 UNIT/1 ML VIAL (RENAL) SUBCUT ONE (13:00)
[2018-11-12] MEDS: SEVELAMER HCL 800 MG TABLET PO SCH ×2 (14:35→17:19)
[2018-11-12] MEDS: CALCITRIOL 0.25 MCG CAPSULE PO SCH (14:36)
--- NOTE | 2018-11-12 17:38 | PDOC PROGRESS REPORT ---
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 Faust's clinic due to progressive pedal edema and mild abdominal distention. He was admitted for IV diuresis for fluid overload. No acute event overnight. He says his abdominal fullness has improved compared to yesterday and his legs feel less tight as well. Patient denies any chest pain, palpitations at rest. No fever or chills. Reason For Visit: ACUTE ON CHRONIC RENAL FAILURE, FLUID OVERLOAD Physical Exam Vital Signs: Temp Pulse Resp BP Pulse Ox 98.6 F 78 17 137/88 H 100 11/12/18 16:04 11/12/18 16:04 11/12/18 16:04 11/12/18 16:04 11/12/18 16:04 Intake & Output 11/11/18 11/12/18 11/13/18 06:59 06:59 06:59 Intake Total 925 Balance 925 Weight 150 lb 12.739 oz General appearance: PRESENT: no acute distress, well-developed, well-nourished Head exam: PRESENT: atraumatic, normocephalic Eye exam: PRESENT: conjunctiva pink, EOMI, PERRLA. ABSENT: scleral icterus Ear exam: PRESENT: normal external ear exam Mouth exam: PRESENT: moist, tongue midline Neck exam: ABSENT: carotid bruit, JVD, lymphadenopathy, thyromegaly Respiratory exam: PRESENT: clear to auscultation shira. ABSENT: rales, rhonchi, wheezes Cardiovascular exam: PRESENT: RRR. ABSENT: diastolic murmur, rubs, systolic murmur Pulses: PRESENT: normal dorsalis pedis pul GI/Abdominal exam: PRESENT: ascites. ABSENT: rebound, tenderness Rectal exam: PRESENT: deferred Extremities exam: PRESENT: +2 edema Neurological exam: PRESENT: alert, awake, oriented to person, oriented to place, oriented to time, oriented to situation, CN II-XII grossly intact. ABSENT: motor sensory deficit Results Laboratory Results: 11/12/18 04:45 11/12/18 04:45 11/12/18 11/12/18 11/12/18 04:45 04:45 04:45 WBC 4.6 RBC 2.51 L Hgb 7.4 L Hct 20.9 L MCV 84 MCH 29.4 MCHC 35.2 RDW 13.5 Plt Count 123 L Seg Neutrophils % 61.0 Lymphocytes % 30.6 Monocytes % 7.1 Eosinophils % 0.9 Basophils % 0.4 Absolute Neutrophils 2.8 Absolute Lymphocytes 1.4 Absolute Monocytes 0.3 Absolute Eosinophils 0.0 Absolute Basophils 0.0 Retic Count (auto) Absolute Retic Sodium 138.8 Potassium 4.7 Chloride 111 H Carbon Dioxide 21 L Anion Gap 7 BUN 77 H Creatinine 4.45 H Est GFR ( Amer) 19 L Est GFR (Non-Af Amer) 16 L Glucose 93 Calcium 8.5 Phosphorus 5.7 H Magnesium 1.9 Iron TIBC % Saturation Ferritin Vitamin B12 Folate PTH Intact 263.8 H Stool Occult Blood 11/12/18 11/12/18 11/12/18 04:47 04:47 10:20 WBC RBC Hgb Hct MCV MCH MCHC RDW Plt Count Seg Neutrophils % Lymphocytes % Monocytes % Eosinophils % Basophils % Absolute Neutrophils Absolute Lymphocytes Absolute Monocytes Absolute Eosinophils Absolute Basophils Retic Count (auto) 3.40 H Absolute Retic 0.087 Sodium Potassium Chloride Carbon Dioxide Anion Gap BUN Creatinine Est GFR ( Amer) Est GFR (Non-Af Amer) Glucose Calcium Phosphorus Magnesium Iron 89.4 TIBC 216 L % Saturation 41 Ferritin 128.00 Vitamin B12 457.0 Folate 8.69 PTH Intact Stool Occult Blood NEGATIVE Impressions: Chest X-Ray 11/11/18 10:42 IMPRESSION: NO ACUTE RADIOGRAPHIC FINDING IN THE CHEST. Assessment & Plan - Diagnosis (1) Fluid overload Is this a current diagnosis for this admission?: Yes Plan: Slightly improving. Continue IV Lasix. (2) Acute on chronic renal failure Is this a current diagnosis for this admission?: Yes Plan: Patient's creatinine 2 months ago was reportedly at 2.5. His creatinine continues to trend the past several weeks. Creatinine today is 4.4. No hyperkalemia and acidosis or elevated. Patient is still making adequate urine. No indication or plan for dialysis at this time. (3) Chronic rejection of kidney transplant Is this a current diagnosis for this admission?: Yes Plan: Continue tacrolimus, mycophenolate and prednisone. - Time Time Spent with patient: 15-24 minutes
--- NOTE | 2018-11-12 18:14 | PDOC CONSULTATION ---
Consultation Consult Date: 11/12/18 Consult reason:: GARCIA in renal transplant patient. 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 He had transplant biopsy done at [facility] which showed chronic cellular rejection approximately a month ago and has had his medications adjusted recently. However patient does not seem to be responding with worsening renal functions and progressive anasarca. He was found to have nephrotic syndrome. In spite of increasing his Lasix he was not able to diurese appropriately and he also was developing cramps in his legs. He is compliant with his medications and diet. Since admission he has had better diuresis but his edema is still persistent. His breathing is some better. No complaints of any chest pains, fever or chills. No history of any hematuria.Labs and medications were reviewed with the patient. His anemia has gotten worse. Iron studies are adequate. No symptoms of any GI bleed. Past Medical History Cardiac Medical History: Reports: Hypertension-primary Renal/ Medical History: Reports: Chronic Kidney Disease Stage III, Proteinuria Hematology Medical History: Reports Anemia of Chronic Kidney Disease Past Surgical History Past Surgical History: Reports: Renal Transplant Social History Smoking Status: Never Smoker Frequency of Alcohol Use: Rare Hx Recreational Drug Use: No Drugs: None Family History Parental Family History Reviewed: Yes - Negative for ESRD Children Family History Reviewed: Yes Sibling(s) Family History Reviewed.: Yes Medication/Allergy Home Medications: Amlodipine Besylate [Norvasc 10 mg Tablet] 10 mg PO DAILY 11/11/18 Carvedilol [Coreg] 6.25 mg PO Q12 11/11/18 Folic Acid/Vitamin B Comp W-C [Zee-Jaydon Tablet] 0.8 mg PO DAILY 11/11/18 Furosemide [Lasix] 40 mg PO Q12 11/11/18 Mycophenolate Mofetil 750 mg PO BID 11/11/18 Prednisone 10 mg PO DAILY 11/11/18 Sevelamer HCl [Renagel 800 mg Tablet] 800 mg PO TID 11/11/18 Sulfamethoxazole/Trimethoprim [Sulfamethoxazole-Tmp Ss Tablet] 1 each PO MOWEFR@1000 11/11/18 Tacrolimus [Prograf] 2 mg PO BID 11/11/18 Allergies/Adverse Reactions: latex Allergy (Verified 10/16/16 22:00) NSAIDS (Non-Steroidal Anti-Inflamma Adverse Reaction (Verified 10/16/16 22:00) Review of Systems Constitutional: PRESENT: fatigue, weight gain. ABSENT: fever(s), headache(s), night sweats, weakness Nose, Mouth, and Throat: ABSENT: headache(s), mouth pain, sore throat Cardiovascular: PRESENT: dyspnea on exertion, edema - To the point of anasarca.. ABSENT: chest pain, orthropnea, palpitations Respiratory: ABSENT: cough, hemoptysis Gastrointestinal: PRESENT: bloating. ABSENT: abdominal pain, constipation, diarrhea, hematemesis, hematochezia, nausea, vomiting Musculoskeletal: ABSENT: deformity, joint swelling Integumentary: ABSENT: erythema, lesions, pruritus, rash Neurological: ABSENT: confusion, convulsions, focal weakness Hematologic/Lymphatic: ABSENT: easy bleeding, easy bruising, lymphadenopathy Physical Exam Vital Signs: Temp Pulse Resp BP Pulse Ox 98.6 F 78 17 137/88 H 100 11/12/18 16:04 11/12/18 16:04 11/12/18 16:04 11/12/18 16:04 11/12/18 16:04 Intake & Output 11/11/18 11/12/18 11/13/18 06:59 06:59 06:59 Intake Total 925 Balance 925 Weight 68.4 kg General appearance: PRESENT: no acute distress Eye exam: PRESENT: EOMI, PERRLA. ABSENT: conjunctiva pink, nystagmus Ear exam: PRESENT: normal external ear exam Mouth exam: PRESENT: moist, neck supple Neck exam: ABSENT: lymphadenopathy, meningismus, tenderness, thyromegaly, tracheal deviation Respiratory exam: PRESENT: clear to auscultation shira, decreased breath sounds. ABSENT: crackles Cardiovascular exam: PRESENT: +S1, systolic murmur GI/Abdominal exam: PRESENT: ascites, distended, normal bowel sounds, soft. ABSENT: organomegaly, tenderness Extremities exam: PRESENT: +2 edema. ABSENT: calf tenderness, clubbing, joint swelling Neurological exam: PRESENT: alert, oriented to person, oriented to place, oriented to time Psychiatric exam: PRESENT: appropriate affect Skin exam: PRESENT: pallor. ABSENT: erythema, jaundice, rash Results Laboratory Results: 11/12/18 04:45 11/12/18 04:45 11/12/18 11/12/18 11/12/18 04:45 04:45 04:45 WBC 4.6 RBC 2.51 L Hgb 7.4 L Hct 20.9 L MCV 84 MCH 29.4 MCHC 35.2 RDW 13.5 Plt Count 123 L Seg Neutrophils % 61.0 Lymphocytes % 30.6 Monocytes % 7.1 Eosinophils % 0.9 Basophils % 0.4 Absolute Neutrophils 2.8 Absolute Lymphocytes 1.4 Absolute Monocytes 0.3 Absolute Eosinophils 0.0 Absolute Basophils 0.0 Retic Count (auto) Absolute Retic Sodium 138.8 Potassium 4.7 Chloride 111 H Carbon Dioxide 21 L Anion Gap 7 BUN 77 H Creatinine 4.45 H Est GFR ( Amer) 19 L Est GFR (Non-Af Amer) 16 L Glucose 93 Calcium 8.5 Phosphorus 5.7 H Magnesium 1.9 Iron TIBC % Saturation Ferritin Vitamin B12 Folate PTH Intact 263.8 H Stool Occult Blood 11/12/18 11/12/18 11/12/18 04:47 04:47 10:20 WBC RBC Hgb Hct MCV MCH MCHC RDW Plt Count Seg Neutrophils % Lymphocytes % Monocytes % Eosinophils % Basophils % Absolute Neutrophils Absolute Lymphocytes Absolute Monocytes Absolute Eosinophils Absolute Basophils Retic Count (auto) 3.40 H Absolute Retic 0.087 Sodium Potassium Chloride Carbon Dioxide Anion Gap BUN Creatinine Est GFR ( Amer) Est GFR (Non-Af Amer) Glucose Calcium Phosphorus Magnesium Iron 89.4 TIBC 216 L % Saturation 41 Ferritin 128.00 Vitamin B12 457.0 Folate 8.69 PTH Intact Stool Occult Blood NEGATIVE Impressions: Chest X-Ray 11/11/18 10:42 IMPRESSION: NO ACUTE RADIOGRAPHIC FINDING IN THE CHEST. Assessment & Plan - Diagnosis (1) Nephrotic syndrome Plan: In the face of acute on chronic rejection of his renal transplant. Status post recent biopsy at [facility]. Patient unfortunately is progressing into ESRD status. Patient has been enrolled in transplant at [facility]. Monitor. (2) Acute on chronic renal failure Is this a current diagnosis for this admission?: Yes Plan: Patient was having baseline CKD stage III in the last couple of years with a base creatinine of around 2.5-3. However in the last 6 weeks or so he has begun transforming himself into further deterioration with rapid progression of acute kidney injury. He underwent renal biopsy at [facility] approximately 4 weeks ago which showed chronic cellular rejection. His transplant medications were adjusted including high-dose steroids followed by low-dose maintenance. However looking at things now it does not look to be producing the side effects. (3) Chronic rejection of kidney transplant Is this a current diagnosis for this admission?: Yes Plan: As mentioned earlier which is now and has put him into CKD stage IV and in all probability he is going to move into CKD stage V sooner than later. Titrate medications accordingly. (4) Fluid overload Is this a current diagnosis for this admission?: Yes Plan: Patient has had some response to IV diuretics. Monitor carefully. Lites stable. (5) Status post kidney transplant Plan: Approximately 30 years ago from his father. Background of prune belly syndrome. (6) Anemia in chronic kidney disease Plan: Start erythropoietin. Discussed adverse effects including hypertension, strokes. Patient willing to proceed. (7) Renal osteodystrophy Plan: Starting phosphate binders and calcitriol. Monitor. (8) Ascites Plan: In the face of nephrotic syndrome. Monitor.
[2018-11-13 05:54] LABS: ANION GAP 6 (5-19); BLOOD UREA NITROGEN 77 mg/dL (7-20); CALCIUM 8.5 mg/dL (8.4-10.2); CARBON DIOXIDE 22 mmol/L (22-30); CHLORIDE 111 mmol/L (98-107); GLUCOSE 107 mg/dL (75-110); POTASSIUM 4.6 mmol/L (3.6-5.0); SODIUM 138.8 mmol/L (137-145)
[2018-11-13] MEDS: FUROSEMIDE INJ/PF 20 MG/2 ML SDV IV SCH ×3 (06:53→22:12)
[2018-11-13] MEDS: TACROLIMUS ANHYDROUS 1 MG CAPSULE PO SCH ×2 (06:54→18:55)
[2018-11-13] MEDS: MYCOPHENOLATE MOFETIL 250 MG CAPSULE PO SCH ×2 (06:54→18:55)
[2018-11-13] MEDS: SEVELAMER HCL 800 MG TABLET PO SCH ×3 (08:45→18:53)
[2018-11-13] MEDS: PREDNISONE 10 MG TABLET PO SCH (09:14)
[2018-11-13] MEDS: CALCITRIOL 0.25 MCG CAPSULE PO SCH (09:14)
[2018-11-13] MEDS: HEPARIN SOD (PORCINE) 5,000 UNIT/ML 1 ML SYRINGE SUBCUT SCH ×2 (09:14→22:11)
[2018-11-13] MEDS: CARVEDILOL 12.5 MG TABLET PO SCH ×2 (09:14→22:12)
--- NOTE | 2018-11-13 15:23 | PDOC PROGRESS REPORT ---
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 Faust's clinic due to progressive pedal edema and mild abdominal distention. He was admitted for IV diuresis for fluid overload. No acute event overnight. He says his abdominal fullness continue to improve and his leg swelling also continue to improve. His pedal edema appear to have improved since admission. Patient denies any chest pain, palpitations at rest. No fever or chills. Reason For Visit: ACUTE ON CHRONIC RENAL FAILURE, FLUID OVERLOAD Physical Exam Vital Signs: Temp Pulse Resp BP Pulse Ox 98.6 F 83 16 135/86 H 97 11/13/18 11:36 11/13/18 14:00 11/13/18 11:36 11/13/18 11:36 11/13/18 11:36 Intake & Output 11/12/18 11/13/18 11/14/18 06:59 06:59 06:59 Intake Total 925 1178 Output Total 1240 Balance 925 -62 Weight 150 lb 12.739 oz 149 lb 0.52 oz General appearance: PRESENT: no acute distress, well-developed, well-nourished Head exam: PRESENT: atraumatic, normocephalic Eye exam: PRESENT: conjunctiva pink, EOMI, PERRLA. ABSENT: scleral icterus Ear exam: PRESENT: normal external ear exam Mouth exam: PRESENT: moist, tongue midline Neck exam: ABSENT: carotid bruit, JVD, lymphadenopathy, thyromegaly Respiratory exam: PRESENT: clear to auscultation shira. ABSENT: rales, rhonchi, wheezes Cardiovascular exam: PRESENT: RRR. ABSENT: diastolic murmur, rubs, systolic murmur Pulses: PRESENT: normal dorsalis pedis pul GI/Abdominal exam: PRESENT: ascites, normal bowel sounds, soft. ABSENT: distended, guarding, mass, organolmegaly, rebound, tenderness Rectal exam: PRESENT: deferred Extremities exam: PRESENT: +2 edema Neurological exam: PRESENT: alert, awake, oriented to person, oriented to place, oriented to time, oriented to situation, CN II-XII grossly intact. ABSENT: motor sensory deficit Results Laboratory Results: 11/12/18 04:45 11/13/18 04:53 11/13/18 04:53 Sodium 138.8 Potassium 4.6 Chloride 111 H Carbon Dioxide 22 Anion Gap 6 BUN 77 H Creatinine 4.21 H Est GFR ( Amer) 21 L Est GFR (Non-Af Amer) 17 L Glucose 107 Calcium 8.5 Impressions: Chest X-Ray 11/11/18 10:42 IMPRESSION: NO ACUTE RADIOGRAPHIC FINDING IN THE CHEST. Assessment & Plan - Diagnosis (1) Fluid overload Is this a current diagnosis for this admission?: Yes Plan: Improving. Reduce IV Lasix to 20 mg q12 today. (2) Acute on chronic renal failure Is this a current diagnosis for this admission?: Yes Plan: Patient's creatinine 2 months ago was reportedly at 2.5. His creatinine continues to trend the past several weeks. Creatinine stable since admission. No hyperkalemia and acidosis or elevated. Patient is still making adequate urine. No indication or plan for dialysis at this time. (3) Chronic rejection of kidney transplant Is this a current diagnosis for this admission?: Yes Plan: Continue tacrolimus, mycophenolate and prednisone. He has been enrolled on the [facility] renal transplant list. Nephrology following. - Time Time Spent with patient: 15-24 minutes
[2018-11-14] MEDS: FUROSEMIDE INJ/PF 20 MG/2 ML SDV IV SCH (05:37)
[2018-11-14 06:46] LABS: ABSOLUTE LYMPHOCYTES (AUTO) 1.3 10^3/uL (0.5-4.7); ABSOLUTE MONOCYTES (AUTO) 0.5 10^3/uL (0.1-1.4); ABSOLUTE NEUT (AUTO) 3.7 10^3/uL (1.7-8.2); BASOPHILS % (AUTO) 0.2 % (0-2); EOSINOPHILS % (AUTO) 0.5 % (0-6); HEMATOCRIT 23.4 % (37.9-51.0); HEMOGLOBIN 8.1 g/dL (13.5-17.0); LYMPHOCYTES % (AUTO) 23.1 % (13-45); MEAN CORPUSCULAR HEMOGLOBIN 28.9 pg (27.0-33.4); MEAN CORPUSCULAR HGB CONC 34.6 g/dL (32.0-36.0); MEAN CORPUSCULAR VOLUME 83 fl (80-97); MONOCYTES % (AUTO) 8.3 % (3-13); PLATELET COUNT 124 10^3/uL (150-450); RED CELL DISTRIBUTION WIDTH 13.8 % (11.5-14.0); SEGMENTED NEUTROPHILS % (AUTO) 67.9 % (42-78); TOTAL CELLS COUNTED % (AUTO) 100 %; WHITE BLOOD COUNT 5.5 10^3/uL (4.0-10.5)
[2018-11-14 07:06] LABS: ANION GAP 8 (5-19); BLOOD UREA NITROGEN 69 mg/dL (7-20); CALCIUM 8.6 mg/dL (8.4-10.2); CARBON DIOXIDE 21 mmol/L (22-30); CHLORIDE 111 mmol/L (98-107); GLUCOSE 102 mg/dL (75-110); POTASSIUM 4.4 mmol/L (3.6-5.0); SODIUM 140.1 mmol/L (137-145)
[2018-11-14] MEDS: SEVELAMER HCL 800 MG TABLET PO SCH (07:37)
[2018-11-14] MEDS: TACROLIMUS ANHYDROUS 1 MG CAPSULE PO SCH (07:37)
[2018-11-14] MEDS: MYCOPHENOLATE MOFETIL 250 MG CAPSULE PO SCH (07:37)
--- NOTE | 2018-11-14 08:53 | XCELERA REPORT ---
[address] [place] [facility] [address] Lower Extremity Venous Evaluation Procedure: Color flow and duplex imaging of the veins of the right lower extremity as well as the left Common Femoral vein. Right Sided Venous Evaluation Normal vessel filling wall to wall, compression and augmentation as well as Colour flow down to the infrageniculate veins. Left Sided Venous Evaluation The left common femoral vein is fully compressible. Spontaneous and phasic flow is present in the left common femoral vein. Interpretation Summary No duplex evidence of DVT or obstruction in the right lower extremity nor in the left Common Femoral vein. Name: MELAINE OATES Age: 28 yrs Gender: Male : 1990 Patient Status: Inpatient Patient Location: [facility]^A Study Date: 11/13/2018 06:59 PM Reason For Study: RIGHT LE US FOR right calf pain Ordering Physician: JOJO POLLOCK Performed By: Robi Azul : JOJO POLLOCK > Adi Thomas
[2018-11-14] MEDS: PREDNISONE 10 MG TABLET PO SCH (09:42)
[2018-11-14] MEDS: CALCITRIOL 0.25 MCG CAPSULE PO SCH (09:43)
[2018-11-14] MEDS: HEPARIN SOD (PORCINE) 5,000 UNIT/ML 1 ML SYRINGE SUBCUT SCH (09:45)
[2018-11-14] MEDS ORDERED: TRIMETHOPRIM PO SCH (10:00)
[2018-11-14] MEDS ORDERED: [UNRECOGNIZED DRUG - OTHER] PO SCH (10:00)
[2018-11-14] MEDS ORDERED: CARVEDILOL 12.5 MG TABLET PO SCH (10:00)
[2018-11-14] MEDS ORDERED: SULFAMETHOXAZOLE PO SCH (10:00)
[2018-11-14] MEDS ORDERED: SULFAMETHOXAZOLE/TRIMETHOPRIM 800-160 MG TABLET PO SCH (10:00)
--- NOTE | 2018-11-14 10:41 | PDOC PROGRESS REPORT ---
Subjective Progress Note for:: 11/14/18 Reason For Visit: Patient seen today. His parents are with him today. Patient generally feels a whole lot better than when he came in. His edema is markedly improved and so 2 is a shortness of breath. However he notes that if he is up on his legs the edema seems to get more. He denies any history of chest pains fever or chills. Appetite is very good. He is ambulatory. Labs and medications were reviewed with the patient and his parents. Physical Exam Vital Signs: Temp Pulse Resp BP Pulse Ox 98.5 F 78 16 159/97 H 98 11/14/18 07:29 11/14/18 07:29 11/14/18 07:29 11/14/18 07:29 11/14/18 07:29 Intake & Output 11/13/18 11/14/18 11/15/18 06:59 06:59 06:59 Intake Total 1178 1060 Output Total 1240 2730 Balance -62 -1670 Weight 67.6 kg 66.3 kg General appearance: PRESENT: no acute distress Respiratory exam: PRESENT: clear to auscultation shira. ABSENT: crackles Cardiovascular exam: PRESENT: +S1, systolic murmur GI/Abdominal exam: PRESENT: ascites, distended, normal bowel sounds, soft. ABSENT: organomegaly, tenderness Extremities exam: PRESENT: pedal edema - Trace-1+ Neurological exam: PRESENT: alert, awake, oriented to person, oriented to place Psychiatric exam: PRESENT: appropriate affect Skin exam: ABSENT: erythema, rash Results Laboratory Results: 11/14/18 05:33 11/14/18 05:33 11/14/18 11/14/18 05:33 05:33 WBC 5.5 RBC 2.80 L Hgb 8.1 L Hct 23.4 L MCV 83 MCH 28.9 MCHC 34.6 RDW 13.8 Plt Count 124 L Seg Neutrophils % 67.9 Lymphocytes % 23.1 Monocytes % 8.3 Eosinophils % 0.5 Basophils % 0.2 Absolute Neutrophils 3.7 Absolute Lymphocytes 1.3 Absolute Monocytes 0.5 Absolute Eosinophils 0.0 Absolute Basophils 0.0 Sodium 140.1 Potassium 4.4 Chloride 111 H Carbon Dioxide 21 L Anion Gap 8 BUN 69 H Creatinine 4.00 H Est GFR ( Amer) 22 L Est GFR (Non-Af Amer) 18 L Glucose 102 Calcium 8.6 Impressions: Chest X-Ray 11/11/18 10:42 IMPRESSION: NO ACUTE RADIOGRAPHIC FINDING IN THE CHEST. Assessment & Plan - Diagnosis (1) Nephrotic syndrome Plan: The background of chronic rejection. Continue to monitor. Have not placed him on a marvin inhibitors given his propensity for hyperkalemia. Will monitor as an outpatient. (2) Acute on chronic renal failure Is this a current diagnosis for this admission?: Yes Plan: Labs shows renal functions are stable. If his edema continues to be the same after being ambulatory on the floor I have discussed with the hospitalist Dr. Calhoun, that he can be discharged home on 20 twice daily of Lasix and I can follow him up in a week or so with labs in the office. (3) Chronic rejection of kidney transplant Is this a current diagnosis for this admission?: Yes Plan: As per transplant biopsy. However currently renal functions are stable. Discharge plans as mentioned earlier. Needs to continue on his anti-rejection medications. (4) Fluid overload Is this a current diagnosis for this admission?: Yes Plan: Markedly improved. Plans as mentioned earlier. (5) Status post kidney transplant Plan: Now undergoing chronic rejection with an acute phase. Continue on current anti- rejection medications. Patient placed on transplant list now at [facility]. (6) Anemia in chronic kidney disease Plan: He got his first dose of erythropoietin. We will continue that as an outpatient when he sees me next week. (7) Renal osteodystrophy Plan: Continue current medications. (8) Ascites Plan: Markedly improved. Monitor. (9) High risk medications (not anticoagulants) long-term use Plan: Currently stable. Monitor.
[2018-11-14 10:48] VITALS: BP 147/86
--- NOTE | 2018-11-14 10:58 | PDOC DISCHARGE SUMMARY ---
General - Admit/Disc Date/PCP Admission Date/Primary Care Provider: 11/11/18 13:17 Discharge Date: 11/14/18 - Discharge Diagnosis (1) Fluid overload Is this a current diagnosis for this admission?: Yes (2) Acute on chronic renal failure Is this a current diagnosis for this admission?: Yes (3) Chronic rejection of kidney transplant Is this a current diagnosis for this admission?: Yes - Additional Information Discharge Diet: Other (Comments) Discharge Activity: Balance Activity w/Rest Prescriptions: Calcitriol [Rocaltrol 0.25 mcg Capsule] 0.25 mcg PO DAILY #30 capsule Carvedilol [Coreg 25 mg Tablet] 1 tab PO Q12 #60 tab Furosemide [Lasix] 20 mg PO Q12 #15 tablet Home Medications: Folic Acid/Vitamin B Comp W-C [Zee-Jaydon Tablet] 0.8 mg PO DAILY 11/11/18 Mycophenolate Mofetil 750 mg PO BID 11/11/18 Prednisone 10 mg PO DAILY 11/11/18 Sevelamer HCl [Renagel 800 mg Tablet] 800 mg PO TID 11/11/18 Tacrolimus [Prograf] 2 mg PO BID 11/11/18 Calcitriol [Rocaltrol 0.25 mcg Capsule] 0.25 mcg PO DAILY #30 capsule 11/14/18 Carvedilol [Coreg 25 mg Tablet] 1 tab PO Q12 #60 tab 11/14/18 Furosemide [Lasix] 20 mg PO Q12 #15 tablet 11/14/18 Sulfamethoxazole/Trimethoprim [Septra-Ds 800-160 mg Tablet] 0.5 tab PO MoWeFr@1000 tablet 11/14/18 History of Present Illness History of Present Illness: MELANIE OATES is a 28 year old male with a past medical history of renal failure, history of renal transplant due to 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 Faust's clinic due to progressive pedal edema and mild abdominal distention. Patient says that he underwent bilateral renal transplant and [place] in 2004. He says that he moved here and has been following with Dr. Faust's clinic for the past 3 years. He says he has been having increasing pedal edema for the past 3 months. He says that over the past week, he has developed mild exertional dyspnea and further worsening of his leg swelling. He is on oral Lasix at home. He was advised by Dr. Faust to be admitted for IV diuresis. Patient denies any chest pain, palpitations at rest. No fever or chills. 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 Faust's clinic due to progressive pedal edema and mild abdominal distention. He was admitted for IV diuresis. He was started on IV Lasix 20 mg q8h per nephro recommendations. Dr. Faust was also following him inpatient and adjusted his medications based on his renal functions. Amlodipine was also DCed as it may potentially contribute to his edema. His Coreg was increased by nephro. He did diurese very well and continued to improve with significant improvement of his bipedal edema and abdominal tightness. On day of discharge, he was at his baseline. His creatinine also improved compared to when he presented to the ER. He is already enrolled on the [facility] kidney transplant list due to a confirmed chronic rejection of his transplanted kidneys. Home medication doses including PO Lasix, prophylactic Bactrim were also adjusted based on Dr. Faust's recommendations. He will follow up with Dr. Faust next week. Physical Exam Vital Signs: Temp Pulse Resp BP Pulse Ox 98.5 F 78 16 147/86 H 98 11/14/18 10:46 11/14/18 10:46 11/14/18 10:46 11/14/18 10:46 11/14/18 10:46 Intake & Output 11/13/18 11/14/18 11/15/18 06:59 06:59 06:59 Intake Total 1178 1060 Output Total 1240 2730 Balance -62 -1670 Weight 149 lb 0.52 oz 146 lb 2.664 oz General appearance: PRESENT: no acute distress, well-developed, well-nourished Head exam: PRESENT: atraumatic, normocephalic Eye exam: PRESENT: conjunctiva pink, EOMI, PERRLA. ABSENT: scleral icterus Ear exam: PRESENT: normal external ear exam Mouth exam: PRESENT: moist, tongue midline Neck exam: ABSENT: carotid bruit, JVD, lymphadenopathy, thyromegaly Respiratory exam: PRESENT: clear to auscultation shira. ABSENT: rales, rhonchi, wheezes Cardiovascular exam: PRESENT: RRR. ABSENT: diastolic murmur, rubs, systolic murmur Pulses: PRESENT: normal dorsalis pedis pul GI/Abdominal exam: PRESENT: ascites - significantly improved, normal bowel sounds, soft. ABSENT: distended, guarding, mass, organolmegaly, rebound, tenderness Rectal exam: PRESENT: deferred Extremities exam: PRESENT: +1 edema Neurological exam: PRESENT: alert, awake, oriented to person, oriented to place, oriented to time, oriented to situation, CN II-XII grossly intact. ABSENT: motor sensory deficit Results Laboratory Results: 11/14/18 05:33 11/14/18 05:33 11/14/18 11/14/18 05:33 05:33 WBC 5.5 RBC 2.80 L Hgb 8.1 L Hct 23.4 L MCV 83 MCH 28.9 MCHC 34.6 RDW 13.8 Plt Count 124 L Seg Neutrophils % 67.9 Lymphocytes % 23.1 Monocytes % 8.3 Eosinophils % 0.5 Basophils % 0.2 Absolute Neutrophils 3.7 Absolute Lymphocytes 1.3 Absolute Monocytes 0.5 Absolute Eosinophils 0.0 Absolute Basophils 0.0 Sodium 140.1 Potassium 4.4 Chloride 111 H Carbon Dioxide 21 L Anion Gap 8 BUN 69 H Creatinine 4.00 H Est GFR ( Amer) 22 L Est GFR (Non-Af Amer) 18 L Glucose 102 Calcium 8.6 Impressions: Chest X-Ray 11/11/18 10:42 IMPRESSION: NO ACUTE RADIOGRAPHIC FINDING IN THE CHEST. Qualifiers - * PATIENT BEING DISCHARGED WITH ANY OF THE FOLLOWING DIAGNOSIS: No
== END 2018-11-14 11:45 | disposition home or self-care (01) | DRG 682 ==
LOC: ER 10:20 → OBSVTOIN 13:17 → EH 13:17 → INTOOBSV 13:17 → 5 14:40 → OBSVTOIN 17:23 → INTOOBSV 17:23
PROVIDERS: ADMIT Internal Medicine; ATTEND Internal Medicine
DX: N17.9 Acute kidney failure, unspecified (principal); Q79.4 Prune belly syndrome; T86.11 Kidney transplant rejection; R18.8 Other ascites; I12.9 Hypertensive chronic kidney disease with stage 1 through stage 4 chronic kidney disease, or unspecified chronic kidney disease; N18.3 Chronic kidney disease, stage 3 (moderate); D63.1 Anemia in chronic kidney disease; N25.0 Renal osteodystrophy; Z79.899 Other long term (current) drug therapy
CPT/HCPCS: 36415; 71046; 80048; 80053; 81001; 82272; 82570; 82607; 82728; 82746; 83540; 83550; 83735; 83970; 84100; 84156; 85025; 85045; 93971; 96374; 99285; J1940; J3490; J7507; J7512; J7517; Q4081

== ENCOUNTER → 2018-11-25 | Outpatient (CLI) | payer BC ==
[2018-11-25 10:41] LABS: ABSOLUTE MONOCYTES (AUTO) 0.4 10^3/uL (0.1-1.4); ABSOLUTE NEUT (AUTO) 3.3 10^3/uL (1.7-8.2); BASOPHILS % (AUTO) 0.2 % (0-2); EOSINOPHILS % (AUTO) 0.7 % (0-6); HEMATOCRIT 24.8 % (37.9-51.0); HEMOGLOBIN 8.4 g/dL (13.5-17.0); LYMPHOCYTES % (AUTO) 20.3 % (13-45); MEAN CORPUSCULAR HEMOGLOBIN 29.3 pg (27.0-33.4); MEAN CORPUSCULAR HGB CONC 33.7 g/dL (32.0-36.0); PLATELET COUNT 168 10^3/uL (150-450); RED BLOOD COUNT 2.86 10^6/uL (4.35-5.55); RED CELL DISTRIBUTION WIDTH 15.3 % (11.5-14.0); SEGMENTED NEUTROPHILS % (AUTO) 69.8 % (42-78); TOTAL CELLS COUNTED % (AUTO) 100 %; WHITE BLOOD COUNT 4.8 10^3/uL (4.0-10.5)
[2018-11-25 10:44] LABS: MEAN CORPUSCULAR VOLUME 87 fl (80-97)
[2018-11-25 10:46] LABS: HEMATOCRIT 24.8 % (37.9-51.0); HEMOGLOBIN 8.4 g/dL (13.5-17.0); MEAN CORPUSCULAR HEMOGLOBIN 29.3 pg (27.0-33.4); MEAN CORPUSCULAR HGB CONC 33.7 g/dL (32.0-36.0); MEAN CORPUSCULAR VOLUME 87 fl (80-97); PLATELET COUNT 168 10^3/uL (150-450); RED BLOOD COUNT 2.86 10^6/uL (4.35-5.55); RED CELL DISTRIBUTION WIDTH 15.3 % (11.5-14.0); WHITE BLOOD COUNT 4.8 10^3/uL (4.0-10.5)
[2018-11-25 11:20] LABS: ALANINE AMINOTRANSFERASE 28 U/L (21-72); ALBUMIN 2.9 g/dL (3.5-5.0); ANION GAP 7 (5-19); ASPARTATE AMINO TRANSFERASE 14 U/L (17-59); BILIRUBIN,TOTAL 0.2 mg/dL (0.2-1.3); BLOOD UREA NITROGEN 75 mg/dL (7-20); CALCIUM 8.4 mg/dL (8.4-10.2); CARBON DIOXIDE 21 mmol/L (22-30); CHLORIDE 110 mmol/L (98-107); CHOLESTEROL 134.31 mg/dL (0-200); GAMMA-GLUTAMYL TRANSFERASE 23 U/L (8-78); GLUCOSE 144 mg/dL (75-110); PHOSPHORUS 5.3 mg/dL (2.5-4.5); POTASSIUM 4.3 mmol/L (3.6-5.0); SODIUM 137.9 mmol/L (137-145); TRIGLYCERIDES 175 mg/dL (<150)
[2018-11-25 11:33] LABS: DIRECT LDL 62 mg/dL (<100)
[2018-11-25 11:46] LABS: ANION GAP 7 (5-19); BLOOD UREA NITROGEN 75 mg/dL (7-20); CALCIUM 8.4 mg/dL (8.4-10.2); CARBON DIOXIDE 21 mmol/L (22-30); CHLORIDE 110 mmol/L (98-107); GLUCOSE 144 mg/dL (75-110); POTASSIUM 4.3 mmol/L (3.6-5.0); SODIUM 137.9 mmol/L (137-145)
[2018-11-26 17:47] LABS: CMV DNA PCR QUANT Negative (Negative)
[2018-11-28 11:43] LABS: TACROLIMUS (FK506) 7.9 ng/mL (2.0-20.0)
== END ==
LOC: OD 07:54
PROVIDERS: ATTEND Internal Medicine Nephrology
DX: D89.9 Disorder involving the immune mechanism, unspecified (principal); B25.9 Cytomegaloviral disease, unspecified; N18.9 Chronic kidney disease, unspecified; D63.1 Anemia in chronic kidney disease; E55.9 Vitamin D deficiency, unspecified; E11.29 Type 2 diabetes mellitus with other diabetic kidney complication; N39.0 Urinary tract infection, site not specified; E83.30 Disorder of phosphorus metabolism, unspecified; Z11.4 Encounter for screening for human immunodeficiency virus [HIV]; Z79.899 Other long term (current) drug therapy; Z78.9 Other specified health status; Z94.0 Kidney transplant status; Z94.83 Pancreas transplant status; Z09 Encounter for follow-up examination after completed treatment for conditions other than malignant neoplasm
CPT/HCPCS: 36415; 80048; 80197; 82040; 82247; 82465; 82977; 83718; 83721; 83735; 84075; 84100; 84450; 84460; 84478; 85025; 85027; 87496

== ENCOUNTER → 2018-12-12 | Outpatient (CLI) | payer BC ==
[2018-12-12 09:56] LABS: ABSOLUTE MONOCYTES (AUTO) 0.2 10^3/uL (0.1-1.4); ABSOLUTE NEUT (AUTO) 1.7 10^3/uL (1.7-8.2); BASOPHILS % (AUTO) 0.6 % (0-2); EOSINOPHILS % (AUTO) 1.3 % (0-6); HEMOGLOBIN 8.5 g/dL (13.5-17.0); LYMPHOCYTES % (AUTO) 33.9 % (13-45); MEAN CORPUSCULAR HEMOGLOBIN 29.5 pg (27.0-33.4); MEAN CORPUSCULAR HGB CONC 34.1 g/dL (32.0-36.0); MEAN CORPUSCULAR VOLUME 87 fl (80-97); MONOCYTES % (AUTO) 7.9 % (3-13); PLATELET COUNT 121 10^3/uL (150-450); RED BLOOD COUNT 2.88 10^6/uL (4.35-5.55); SEGMENTED NEUTROPHILS % (AUTO) 56.3 % (42-78); TOTAL CELLS COUNTED % (AUTO) 100 %
[2018-12-12 10:18] LABS: ANION GAP 5 (5-19); BLOOD UREA NITROGEN 56 mg/dL (7-20); CALCIUM 8.5 mg/dL (8.4-10.2); CARBON DIOXIDE 23 mmol/L (22-30); CHLORIDE 112 mmol/L (98-107); GLUCOSE 93 mg/dL (75-110); PHOSPHORUS 5.3 mg/dL (2.5-4.5); POTASSIUM 5.7 mmol/L (3.6-5.0); SODIUM 139.6 mmol/L (137-145)
== END ==
LOC: OD 09:13
PROVIDERS: ATTEND Internal Medicine Nephrology
DX: D89.9 Disorder involving the immune mechanism, unspecified (principal); B25.9 Cytomegaloviral disease, unspecified; E55.9 Vitamin D deficiency, unspecified; E11.29 Type 2 diabetes mellitus with other diabetic kidney complication; N18.9 Chronic kidney disease, unspecified; D63.1 Anemia in chronic kidney disease; Z11.4 Encounter for screening for human immunodeficiency virus [HIV]; N39.0 Urinary tract infection, site not specified; Z94.0 Kidney transplant status; Z94.83 Pancreas transplant status; Z09 Encounter for follow-up examination after completed treatment for conditions other than malignant neoplasm
CPT/HCPCS: 36415; 80048; 80197; 83735; 84100; 85025

== ENCOUNTER → 2018-12-30 | Outpatient (CLI) | payer BC ==
[2018-12-30 07:45] LABS: ABSOLUTE LYMPHOCYTES (AUTO) 0.9 10^3/uL (0.5-4.7); ABSOLUTE MONOCYTES (AUTO) 0.3 10^3/uL (0.1-1.4); ABSOLUTE NEUT (AUTO) 1.7 10^3/uL (1.7-8.2); BASOPHILS % (AUTO) 0.4 % (0-2); EOSINOPHILS % (AUTO) 1.3 % (0-6); HEMATOCRIT 23.8 % (37.9-51.0); LYMPHOCYTES % (AUTO) 30.2 % (13-45); MEAN CORPUSCULAR HEMOGLOBIN 28.9 pg (27.0-33.4); MEAN CORPUSCULAR HGB CONC 33.7 g/dL (32.0-36.0); MEAN CORPUSCULAR VOLUME 86 fl (80-97); PLATELET COUNT 150 10^3/uL (150-450); RED BLOOD COUNT 2.78 10^6/uL (4.35-5.55); RED CELL DISTRIBUTION WIDTH 14.8 % (11.5-14.0); SEGMENTED NEUTROPHILS % (AUTO) 58.1 % (42-78); TOTAL CELLS COUNTED % (AUTO) 100 %; WHITE BLOOD COUNT 2.9 10^3/uL (4.0-10.5)
[2018-12-30 08:01] LABS: ALANINE AMINOTRANSFERASE 34 U/L (21-72); ALKALINE PHOSPHATASE 34 U/L (38-126); ANION GAP 6 (5-19); ASPARTATE AMINO TRANSFERASE 16 U/L (17-59); BILIRUBIN,DIRECT 0.1 mg/dL (0.0-0.4); BILIRUBIN,TOTAL 0.2 mg/dL (0.2-1.3); BLOOD UREA NITROGEN 68 mg/dL (7-20); CALCIUM 8.1 mg/dL (8.4-10.2); CARBON DIOXIDE 21 mmol/L (22-30); CHLORIDE 112 mmol/L (98-107); GLUCOSE 96 mg/dL (75-110); PHOSPHORUS 6.6 mg/dL (2.5-4.5); POTASSIUM 5.2 mmol/L (3.6-5.0); SODIUM 139.3 mmol/L (137-145); TOTAL PROTEIN 4.6 g/dL (6.3-8.2)
[2018-12-30 08:30] LABS: ABSOLUTE LYMPHOCYTES (AUTO) 0.9 10^3/uL (0.5-4.7); ABSOLUTE MONOCYTES (AUTO) 0.3 10^3/uL (0.1-1.4); ABSOLUTE NEUT (AUTO) 1.7 10^3/uL (1.7-8.2); BASOPHILS % (AUTO) 0.4 % (0-2); EOSINOPHILS % (AUTO) 1.3 % (0-6); HEMATOCRIT 23.8 % (37.9-51.0); LYMPHOCYTES % (AUTO) 30.2 % (13-45); MEAN CORPUSCULAR HEMOGLOBIN 28.9 pg (27.0-33.4); MEAN CORPUSCULAR HGB CONC 33.7 g/dL (32.0-36.0); MEAN CORPUSCULAR VOLUME 86 fl (80-97); PLATELET COUNT 150 10^3/uL (150-450); RED BLOOD COUNT 2.78 10^6/uL (4.35-5.55); RED CELL DISTRIBUTION WIDTH 14.8 % (11.5-14.0); SEGMENTED NEUTROPHILS % (AUTO) 58.1 % (42-78); TOTAL CELLS COUNTED % (AUTO) 100 %; WHITE BLOOD COUNT 2.9 10^3/uL (4.0-10.5)
[2018-12-30 08:32] LABS: AMORPHOUS SEDIMENT,URINE TRACE /HPF; APPEARANCE,URINE SLIGHTLY-CLOUDY; BILIRUBIN,URINE NEGATIVE (NEGATIVE); COLOR,URINE YELLOW; GLUCOSE, URINE NEGATIVE (NEGATIVE); KETONES,URINE NEGATIVE (NEGATIVE); LEUKOCYTE ESTERASE,URINE NEGATIVE (NEGATIVE); NITRITE,URINE NEGATIVE (NEGATIVE); PROTEIN,URINE >=500 mg/dL (NEGATIVE); URINE SPECIFIC GRAVITY 1.011; UROBILINOGEN,URINE NEGATIVE mg/dL (<2.0)
[2018-12-30 08:41] LABS: URINE CREATININE 103.3 mg/dL (24-392)
[2018-12-30 08:47] LABS: UR PRO/CREAT RATIO RESULT 4.5 mg/mg (0.0-0.2); URINE PROTEIN 462.2 mg/dL (<12)
[2018-12-30 08:52] LABS: ANION GAP 6 (5-19); BLOOD UREA NITROGEN 68 mg/dL (7-20); CALCIUM 8.1 mg/dL (8.4-10.2); CARBON DIOXIDE 21 mmol/L (22-30); CHLORIDE 112 mmol/L (98-107); GLUCOSE 96 mg/dL (75-110); PHOSPHORUS 6.6 mg/dL (2.5-4.5); POTASSIUM 5.2 mmol/L (3.6-5.0); SODIUM 139.3 mmol/L (137-145)
== END ==
LOC: OD 07:10
PROVIDERS: ATTEND Internal Medicine Nephrology
DX: D89.9 Disorder involving the immune mechanism, unspecified (principal); N18.5 Chronic kidney disease, stage 5; D63.1 Anemia in chronic kidney disease; E11.22 Type 2 diabetes mellitus with diabetic chronic kidney disease; E11.29 Type 2 diabetes mellitus with other diabetic kidney complication; R80.9 Proteinuria, unspecified; I50.9 Heart failure, unspecified; N39.0 Urinary tract infection, site not specified; B25.9 Cytomegaloviral disease, unspecified; E83.30 Disorder of phosphorus metabolism, unspecified; Z94.83 Pancreas transplant status; Z94.0 Kidney transplant status; Z79.899 Other long term (current) drug therapy; Z11.4 Encounter for screening for human immunodeficiency virus [HIV]
CPT/HCPCS: 36415; 80048; 80053; 80197; 81001; 82570; 83735; 83970; 84100; 84156; 85025

== ENCOUNTER → 2019-01-09 | Outpatient (CLI) | payer BC ==
[2019-01-09 08:21] LABS: ABSOLUTE LYMPHOCYTES (AUTO) 0.8 10^3/uL (0.5-4.7); ABSOLUTE MONOCYTES (AUTO) 0.3 10^3/uL (0.1-1.4); ABSOLUTE NEUT (AUTO) 1.5 10^3/uL (1.7-8.2); BASOPHILS % (AUTO) 0.5 % (0-2); EOSINOPHILS % (AUTO) 1.4 % (0-6); HEMATOCRIT 24.4 % (37.9-51.0); HEMOGLOBIN 8.2 g/dL (13.5-17.0); LYMPHOCYTES % (AUTO) 28.9 % (13-45); MEAN CORPUSCULAR HEMOGLOBIN 29.2 pg (27.0-33.4); MEAN CORPUSCULAR HGB CONC 33.6 g/dL (32.0-36.0); MEAN CORPUSCULAR VOLUME 87 fl (80-97); MONOCYTES % (AUTO) 11.7 % (3-13); PLATELET COUNT 164 10^3/uL (150-450); RED BLOOD COUNT 2.81 10^6/uL (4.35-5.55); RED CELL DISTRIBUTION WIDTH 15.8 % (11.5-14.0); SEGMENTED NEUTROPHILS % (AUTO) 57.5 % (42-78); TOTAL CELLS COUNTED % (AUTO) 100 %; WHITE BLOOD COUNT 2.6 10^3/uL (4.0-10.5)
[2019-01-09 08:49] LABS: ALANINE AMINOTRANSFERASE 19 U/L (21-72); ALKALINE PHOSPHATASE 32 U/L (38-126); ANION GAP 9 (5-19); ASPARTATE AMINO TRANSFERASE 15 U/L (17-59); BILIRUBIN,DIRECT 0.3 mg/dL (0.0-0.4); BILIRUBIN,TOTAL 0.3 mg/dL (0.2-1.3); BLOOD UREA NITROGEN 67 mg/dL (7-20); CALCIUM 8.3 mg/dL (8.4-10.2); CARBON DIOXIDE 19 mmol/L (22-30); CHLORIDE 114 mmol/L (98-107); GLUCOSE 91 mg/dL (75-110); POTASSIUM 5.2 mmol/L (3.6-5.0); SODIUM 141.6 mmol/L (137-145); TOTAL PROTEIN 4.8 g/dL (6.3-8.2)
== END ==
LOC: OD 07:28
PROVIDERS: ATTEND Internal Medicine Nephrology
DX: N18.5 Chronic kidney disease, stage 5 (principal); I50.9 Heart failure, unspecified; R80.9 Proteinuria, unspecified
CPT/HCPCS: 36415; 80053; 85025

== ENCOUNTER → 2019-01-24 | Outpatient (CLI) | payer BC ==
[2019-01-24 08:02] LABS: ABSOLUTE EOSINOPHILS # (AUTO) 0.1 10^3/uL (0.0-0.6); ABSOLUTE LYMPHOCYTES (AUTO) 0.6 10^3/uL (0.5-4.7); ABSOLUTE MONOCYTES (AUTO) 0.3 10^3/uL (0.1-1.4); ABSOLUTE NEUT (AUTO) 1.7 10^3/uL (1.7-8.2); BASOPHILS % (AUTO) 0.7 % (0-2); EOSINOPHILS % (AUTO) 1.9 % (0-6); HEMATOCRIT 24.8 % (37.9-51.0); HEMOGLOBIN 8.3 g/dL (13.5-17.0); MEAN CORPUSCULAR HGB CONC 33.6 g/dL (32.0-36.0); MEAN CORPUSCULAR VOLUME 86 fl (80-97); MONOCYTES % (AUTO) 10.4 % (3-13); PLATELET COUNT 133 10^3/uL (150-450); RED BLOOD COUNT 2.88 10^6/uL (4.35-5.55); TOTAL CELLS COUNTED % (AUTO) 100 %; WHITE BLOOD COUNT 2.7 10^3/uL (4.0-10.5)
[2019-01-24 08:22] LABS: APPEARANCE,URINE SLIGHTLY-CLOUDY; BILIRUBIN,URINE NEGATIVE (NEGATIVE); COLOR,URINE YELLOW; GLUCOSE, URINE 50 mg/dL (NEGATIVE); KETONES,URINE NEGATIVE (NEGATIVE); LEUKOCYTE ESTERASE,URINE NEGATIVE (NEGATIVE); NITRITE,URINE NEGATIVE (NEGATIVE); PROTEIN,URINE 100 mg/dL (NEGATIVE); UROBILINOGEN,URINE NEGATIVE mg/dL (<2.0)
[2019-01-24 08:43] LABS: ANISOCYTOSIS 1+; BURR CELLS 2+; OVALOCYTES 1+; PLATELET COMMENT DECREASED; POIKILOCYTOSIS 2+; SCHISTOCYTES 1+
[2019-01-24 08:44] LABS: ANION GAP 12 (5-19); BLOOD UREA NITROGEN 95 mg/dL (7-20); CALCIUM 8.4 mg/dL (8.4-10.2); CARBON DIOXIDE 15 mmol/L (22-30); CHLORIDE 115 mmol/L (98-107); GLUCOSE 94 mg/dL (75-110); HEMATOCRIT 24.8 % (37.9-51.0); HEMOGLOBIN 8.3 g/dL (13.5-17.0); MEAN CORPUSCULAR HGB CONC 33.6 g/dL (32.0-36.0); MEAN CORPUSCULAR VOLUME 86 fl (80-97); PHOSPHORUS 8.3 mg/dL (2.5-4.5); PLATELET COUNT 133 10^3/uL (150-450); RED BLOOD COUNT 2.88 10^6/uL (4.35-5.55); WHITE BLOOD COUNT 2.7 10^3/uL (4.0-10.5)
[2019-01-24 09:03] LABS: URINE CREATININE 80.7 mg/dL (24-392)
[2019-01-24 09:04] LABS: UR PRO/CREAT RATIO RESULT 3.2 mg/mg (0.0-0.2); URINE PROTEIN 259.9 mg/dL (<12)
[2019-01-24 09:11] LABS: ALANINE AMINOTRANSFERASE 36 U/L (21-72); ALKALINE PHOSPHATASE 33 U/L (38-126); ANION GAP 12 (5-19); ASPARTATE AMINO TRANSFERASE 17 U/L (17-59); BILIRUBIN,DIRECT 0.5 mg/dL (0.0-0.4); BILIRUBIN,TOTAL 0.5 mg/dL (0.2-1.3); BLOOD UREA NITROGEN 95 mg/dL (7-20); CALCIUM 8.4 mg/dL (8.4-10.2); CARBON DIOXIDE 15 mmol/L (22-30); CHLORIDE 115 mmol/L (98-107); GLUCOSE 94 mg/dL (75-110); IRON(TIBC) 70.7 ug/dL (49-181); PHOSPHORUS 8.3 mg/dL (2.5-4.5); TOTAL PROTEIN 4.8 g/dL (6.3-8.2)
[2019-01-26 13:39] LABS: HEPATITIS B CORE AB TOT Negative (Negative); HEPATITIS C VIRUS AB <0.1 s/co ratio (0.0-0.9); HEPATITS B SURFACE ANTIGEN Negative (Negative)
[2019-01-26 14:26] LABS: HEPATITIS B CORE AB IGM Negative (Negative)
== END ==
LOC: OD 07:07
PROVIDERS: ATTEND Internal Medicine Nephrology
DX: D89.9 Disorder involving the immune mechanism, unspecified (principal); Z94.0 Kidney transplant status; Z79.899 Other long term (current) drug therapy; E55.9 Vitamin D deficiency, unspecified; Z11.4 Encounter for screening for human immunodeficiency virus [HIV]; E11.29 Type 2 diabetes mellitus with other diabetic kidney complication; Z78.9 Other specified health status; N39.0 Urinary tract infection, site not specified; D63.1 Anemia in chronic kidney disease; Z09 Encounter for follow-up examination after completed treatment for conditions other than malignant neoplasm; T86.10 Unspecified complication of kidney transplant; B25.9 Cytomegaloviral disease, unspecified; Z94.83 Pancreas transplant status; I12.0 Hypertensive chronic kidney disease with stage 5 chronic kidney disease or end stage renal disease; N18.5 Chronic kidney disease, stage 5
CPT/HCPCS: 36415; 80048; 80053; 80197; 81001; 82570; 82728; 83540; 83550; 83735; 83970; 84100; 84156; 85025; 85027; 86704; 86705; 86803; 86804; 87340

== ENCOUNTER → 2019-02-14 | Outpatient (CLI) | payer BC ==
[2019-02-14 08:06] LABS: HEMATOCRIT 22.7 % (37.9-51.0); MEAN CORPUSCULAR HEMOGLOBIN 29.2 pg (27.0-33.4); MEAN CORPUSCULAR HGB CONC 34.9 g/dL (32.0-36.0); MEAN CORPUSCULAR VOLUME 84 fl (80-97); PLATELET COUNT 129 10^3/uL (150-450); RED BLOOD COUNT 2.71 10^6/uL (4.35-5.55); RED CELL DISTRIBUTION WIDTH 14.8 % (11.5-14.0)
[2019-02-14 08:26] LABS: ANION GAP 8 (5-19); BLOOD UREA NITROGEN 40 mg/dL (7-20); CALCIUM 8.5 mg/dL (8.4-10.2); CARBON DIOXIDE 31 mmol/L (22-30); CHLORIDE 100 mmol/L (98-107); GLUCOSE 92 mg/dL (75-110); PHOSPHORUS 5.3 mg/dL (2.5-4.5); POTASSIUM 3.5 mmol/L (3.6-5.0); SODIUM 138.9 mmol/L (137-145)
[2019-02-14 08:31] LABS: WHITE BLOOD COUNT 1.7 10^3/uL (4.0-10.5)
[2019-02-14 08:39] LABS: ABSOLUTE LYMPHOCYTES# (MANUAL) 0.9 10^3/uL (0.5-4.7); ABSOLUTE MONOCYTES # (MANUAL) 0.2 10^3/uL (0.1-1.4); ABSOLUTE NEUTROPHILS# (MANUAL) 0.4 10^3/uL (1.7-8.2); BASOPHILS % (MANUAL) 0 % (0-2); EOSINOPHILS % (MANUAL) 14 % (0-6); LYMPHOCYTES % (MANUAL) 50 % (13-45); MONOCYTES % (MANUAL) 12 % (3-13); SEGMENTED NEUTROPHILS % (MAN) 24 % (42-78); TOTAL CELLS COUNTED 50
[2019-02-14 08:40] LABS: OVALOCYTES 1+; POIKILOCYTOSIS 1+; SCHISTOCYTES 1+; TEAR DROP CELLS SLIGHT
[2019-02-14 08:41] LABS: PLATELET COMMENT DECREASED
[2019-02-14 09:53] LABS: HEMOGLOBIN 7.9 g/dL (13.5-17.0)
[2019-02-14 12:11] LABS: PATH REVIEW PATHOLOGIST REVIEWED
== END ==
LOC: OD 07:03
PROVIDERS: ATTEND Internal Medicine Nephrology
DX: D89.9 Disorder involving the immune mechanism, unspecified (principal); Z94.0 Kidney transplant status; Z79.899 Other long term (current) drug therapy; E55.9 Vitamin D deficiency, unspecified; Z11.4 Encounter for screening for human immunodeficiency virus [HIV]; E11.29 Type 2 diabetes mellitus with other diabetic kidney complication; Z78.9 Other specified health status; N39.0 Urinary tract infection, site not specified; D63.1 Anemia in chronic kidney disease; E83.30 Disorder of phosphorus metabolism, unspecified; Z09 Encounter for follow-up examination after completed treatment for conditions other than malignant neoplasm; B25.9 Cytomegaloviral disease, unspecified; Z94.83 Pancreas transplant status
CPT/HCPCS: 36415; 80048; 80197; 83735; 84100; 85025

== ENCOUNTER → 2019-05-01 | Outpatient (CLI) | payer BC ==
--- NOTE | 2019-05-01 13:03 | RADIOLOGY REPORT (SQ) ---
EXAM DESCRIPTION: DUPLEX ART/CHRISTI FLOW COMPLETE COMPLETED DATE/TIME: 05/01/2019 11:31 am REASON FOR STUDY: (R10.31)RIGHT LOWER QUADRANT PAIN R10.31 RIGHT LOWER QUADRANT PAIN I10 ESSENTIAL (PRIMARY) HYPERTENSION COMPARISON: 10/18/2018. TECHNIQUE: Realtime and static grayscale images acquired. Selected color Doppler, velocities and spe ctral images recorded. LIMITATIONS: None. FINDINGS: TRANSPLANT KIDNEY: LOCATION: Right lower quadrant. RENAL ARTERY VELOCITIES: 38 cm/sec. Segmental artery velocity 23 cm/sec. RENAL VEIN: Color doppler flow present, patent. VELOCITY RATIO: 0.31. Normal waveforms. KIDNEY: Normal size. No significant pathology. OTHER: The [place] kidneys are not visualized. No other significant finding. IMPRESSION: NO DOPPLER EVIDENCE OF HEMODYNAMICALLY SIGNIFICANT RENAL ARTERY STENOSIS. COMMENT: NORMAL RENAL ARTERY/AORTA VELOCITY RATIO IS LESS THAN OR EQUAL TO 3.5. TECHNICAL DOCUMENTATION: JOB ID: [id number] [employer]- All Rights Reserved Reading location - IP/workstation name: [email or web address]
--- NOTE | 2019-05-01 13:06 | RADIOLOGY REPORT (SQ) ---
EXAM DESCRIPTION: U/S ABDOMEN COMPLETE W/O DOP COMPLETED DATE/TIME: 05/01/2019 11:31 am REASON FOR STUDY: (R10.31)RIGHT LOWER QUADRANT PAIN R10.31 RIGHT LOWER QUADRANT PAIN I10 ESSENTIAL (PRIMARY) HYPERTENSION COMPARISON: None. TECHNIQUE: Dynamic and static grayscale images acquired of the abdomen and recorded on PACS. Additio nal selected color Doppler and spectral images recorded. Note: Study does not meet criteria for complete doppler/duplex scan LIMITATIONS: None. FINDINGS: PANCREAS: No masses. Visualized pancreatic duct normal caliber. LIVER: No masses. Echotexture normal. LIVER VASCULATURE: Normal directional flow of the main portal vein and hepatic veins. GALLBLADDER: No stones. Mild gallbladder wall thickening. No pericholecystic fluid. ULTRASOUND-DETECTED REDD'S SIGN: Negative. INTRAHEPATIC DUCTS AND COMMON DUCT: CBD and intrahepatic ducts normal caliber. No filling defects. INFERIOR VENA CAVA: Normal flow. AORTA: No aneurysm. TRANSPLANT KIDNEY: Located in the right lower quadrant. Normal size. Normal echogenicity. No so lid or suspicious masses. No hydronephrosis. No calcifications. [place] KIDNEYS: Not visualized. SPLEEN: Enlarged, measuring 17.1 cm. No solid masses. PERITONEAL AND PLEURAL SPACES: No ascites or effusions. OTHER: No other significant finding. IMPRESSION: 1. SPLENOMEGALY. 2. TRANSPLANT KIDNEY IN THE RIGHT LOWER QUADRANT WITH NO GROSS ABNORMALITY. THE [place] KIDNEYS ARE N OT VISUALIZED. 3. OTHERWISE UNREMARKABLE ABDOMINAL ULTRASOUND. TECHNICAL DOCUMENTATION: JOB ID: [id number] [employer]- All Rights Reserved Reading location - IP/workstation name: [email or web address]
== END ==
LOC: RAD 09:13
PROVIDERS: ATTEND Physician Assistant Medical
DX: I10 Essential (primary) hypertension (principal); R10.31 Right lower quadrant pain; R16.1 Splenomegaly, not elsewhere classified; Z94.0 Kidney transplant status
CPT/HCPCS: 76700; 93975